=== PATIENT | male | born 1960 | race Caucasian/White ===

== ENCOUNTER → 2017-10-10 | Outpatient (CLI) | payer OTHER ==
--- NOTE | 2017-10-10 11:51 | DIAGNOSTIC IMAGING REPORT ---
CHEST 2 VIEWS ROUTINE CLINICAL HISTORY: COUGH COMPARISON STUDY: No previous studies for comparison. FINDINGS: The cardiac and mediastinal contours are normal. There is no evidence of focal pulmonary consolidation. There is no evidence of failure. No pleural effusions are visualized.[ IMPRESSION: No active disease in the chest. Electronically signed by: Gonsalo Donovan M.D. 10/10/2017 11:50 AM Dictated Date/Time: 10/10/2017 11:50 AM
== END | disposition home or self-care (01) ==
LOC: C.RAD1850 11:18
PROVIDERS: ATTEND Internal Medicine
DX: R50.9 Fever, unspecified (principal); R05 Cough

== ENCOUNTER 2020-03-08 22:31 | Observation (INO) ==
[2020-03-08] MEDS ORDERED: ALBUT/IPRATROP 3MG/0.5MG NEB 3 ML VIAL NEB STA (22:50)
[2020-03-08] MEDS ORDERED: ALBUT/IPRATROP 3MG/0.5MG NEB 3 ML VIAL NEB ONE (22:54)
[2020-03-08] MEDS ORDERED: methylPREDNISolone 125 MG/2 ML VIAL IV STA (22:54)
[2020-03-08] MEDS ORDERED: cefTRIAXone SODIUM 2,000 MG/70 ML BAG IV STA (22:57)
[2020-03-08 23:08] LABS: Basophils # (auto) 0.03 K/uL (0-0.2); Basophils % (auto) 0.3 %; Eosinophils # (auto) 0.88 K/uL (0-0.5); Eosinophils % (auto) 9.8 %; Hematocrit (blood only) 52.5 % (42-52); Hemoglobin 18.2 g/dL (14.0-18.0); Immature Granulocytes # (auto) 0.01 K/uL (0.00-0.02); Immature Granulocytes % (auto) 0.1 %; Lymphocytes # (auto) 2.96 K/uL (1.2-3.4); Mean Corpuscular Hemoglobin 30.3 pg (25-34); Mean Corpuscular Hgb Conc 34.7 g/dL (32-36); Mean Corpuscular Volume 87.5 fL (80-100); Mean Platelet Volume 10.6 fL (7.4-10.4); Monocytes # (auto) 0.51 K/uL (0.11-0.59); Monocytes % (auto) 5.7 %; Neutrophils # (auto) 4.59 K/uL (1.4-6.5); Neutrophils % (auto) 51.1 %; Platelet Count 194 K/uL (130-400); RDW Coefficient of Variation 13.7 % (11.5-14.5); RDW Standard Deviation 43.8 fL (36.4-46.3); White Blood Count 8.98 K/uL (4.8-10.8)
[2020-03-08 23:23] LABS: Partial Thromboplastin Ratio 0.9; Partial Thromboplastin Time 26.5 Seconds (21.0-31.0); Prothrombin Time 10.7 Seconds (9.0-12.0)
[2020-03-08 23:27] LABS: D Dimer 850 ug/L FEU (0-500)
[2020-03-08 23:48] LABS: Alanine Aminotransferase 35 U/L (12-78); Albumin Globulin Ratio 1.2 (0.9-2); Albumin Level 4.3 gm/dl (3.4-5.0); Alkaline Phosphatase 84 U/L (45-117); Aspartate Aminotransferase 19 U/L (15-37); BUN Creatinine Ratio 22.7 (10-20); Bilirubin,Total 0.8 mg/dl (0.2-1); Blood Urea Nitrogen 31 mg/dl (7-18); Calcium 9.7 mg/dl (8.5-10.1); Carbon Dioxide 27 mmol/L (21-32); Chloride 106 mmol/L (98-107); Creatinine Clr Calc Pharmacy 58.5 ml/min; Est GFR (African American) 65.5; Est GFR (Non-African American) 56.6; Globulin 3.6 gm/dl (2.5-4.0); Glucose 94 mg/dl (70-99); Magnesium 2.3 mg/dl (1.8-2.4); Potassium 3.7 mmol/L (3.5-5.1); Sodium 140 mmol/L (136-145); Total Protein 7.9 gm/dl (6.4-8.2); Troponin I < 0.015 ng/ml (0-0.045)
[2020-03-09 00:02] LABS: Base Excess VBG 1.5 mEq/L; Oxygen Saturation VBG 87.1 %; pH VBG 7.39 (7.36-7.41)
[2020-03-09 00:25] LABS: Influenza A virus by PCR Neg for Influ A (Neg); Influenza B virus by PCR Neg for Influ B (Neg)
[2020-03-09] MEDS ORDERED: OPTIRAY 320 125ml IV PRN (00:50)
[2020-03-09] MEDS ORDERED: OXYMETAZOLINE 0.05% 30 ML BTL ONE (01:04)
[2020-03-09 01:42] LABS: NT Pro B Type Natriuretic Pept 47 pg/ml (0-900)
--- NOTE | 2020-03-09 02:57 | History & Physical Report ---
Date of Service March 09, 2020 Assessment & Plan (1) Shortness of breath: 59yo C male with no known pulmonary disease presenting with SOB/cough/wheeze/tachypnea. Symptoms improved with Albuterol and steroids. Ddx to include reactive airway disease, CHF. Patient with hemochromotosis - no kno wn cardiac dysfunction -observation to medical floor -Albuterol PRN -Continue Tessalon -Check 2D echo -Supplemental O2 as needed Present on Admission?: Yes (2) Hemochromatosis: Chronic. Stable -2D echo as above F/E/N - Heplock. Monitor electrolytes. Regular diet Ppx - low risk for DVT Code - Full Dispo - Observation to medical floor Admission and Anticipated Discharge Date Admission Date: 03/09/20 Anticipated date of discharge: 03/09/20 History of Present Illness Chief Complaint: SOB Primary Care Provider: Nate Philip MD Rickie Lugo is a pleasant 59yo C male with history of hereditary hemochromotosis presenting with SOB/wheeze. He reports that his symptoms began approximately 10 days ago when he noticed a dry cough with wheezing and dyspnea. These symptoms lasted approximately one day then resolved. He felt SOB again a few days later. Cough is worst at night. He had testing for COVID-19 performed on 03/05/20 which was negative. Patient mowed the lawn today then took his dog for a walk. Around 21:00 he became severely short of breath, had a coughing fit that would not resolve with use of Tessalon. When he came to the ER he was in respiratory distress with RR of 26. He was administered a 12mL Albuterol Neb treatment and Solumedrol and briefly placed on BiPAP for increased work of breathing. His symptoms improved. He is presently on 2L via Oxymask, speaking in complete sentences with no evidence of respiratory distress. States that he feels much improved. No history of pulmonary disease, no Asthma/COPD. Has mild symptoms consistent with seasonal allergies to include rhinorrhea, sneezing. Had second-hand smoke exposure as a child but no personal history of smoking. Denies orthopnea/weight gain/edema. He has mild chest discomfort and soreness with cough and deep breathing. Otherwise, no complaints. Specifically no fe vers/chills/aches/abdominal pain/nausea/vomiting/diarrhea or constipation. ER Course: Albuterol, Ceftriaxone, Solumedrol, Afrin, BiPAP Allergies Allergy/AdvReac Type Severity Reaction Status Date / Time No Known Allergies Allergy Verified 03/08/20 23:26 Home Medications Home Medications Medication Instructions Recorded Confirmed Type benzonatate 200 mg capsule 200 mg PO TID PRN #30 cap 03/06/20 03/08/20 Rx Past Med/Surg History Social History Preferred Language: Tam[place] Communication Ability: Effective Visual Impairment: No Limitations Hearing Ability: Normal Hospital Manager Required: No marital status: Current Living Situation: Spouse current occupational status: employed current occupation: [employer] Safe at Home: Yes Smoking Status: Never smoker Hx Alcohol Use: No Hx Substance Use: No Childhood Exposure to Second-Hand Smoke: Yes caffeine: Yes Dental Care, Regularly: Yes Physical Activity Frequency: 3-4 Times per Week Seatbelt Use: always Sunscreen Use: Yes Review of Systems Review of Systems: All systems reviewed & are unremarkable except as noted in HPI & below Physical Exam Physical Exam: General: patient resting comfortably, NAD, non-toxic in appearance, AA&O x 4 Skin: warm, dry, intact, no rashes or lesions HEENT: NC/AT, PERRL, EOMI, anicteric sclera, conjunctiva without injection, external ear normal to inspection and nontender, nares patent, moist mucus membranes, dentition intact, no oropharyngeal lesions, neck supple, trachea midline, no LAD, no thyromegaly, no JVD Heart: +S1/S2, regular, no m/r/g Lungs: equal air entry bilaterally, no rales/rhonchi/wheezes Abd: +BS, soft, NT/ND, no masses/organomegaly/ascites Ext: warm, 2+ pulses in UE/LE bilaterally, no clubbing/cyanosis or edema Neuro: nonfocal, patient AA&O x 4, speech intact, no facial droop, moving all extremities on command with equal strength 5/5 Results & Data Results & Data ([facility]) Vital Signs (Past 12 Hours) Vital Signs Temp Pulse Pulse Resp BP BP Pulse Ox 03/09/20 02:22 64 16 143/75 H 97 03/09/20 00:48 77 15 98 03/09/20 00:47 77 12 127/69 98 06/05/20 00:00 89 17 133/85 98 03/08/20 23:27 98 03/08/20 23:22 103 H 22 145/106 H 99 03/08/20 23:18 98 H 20 98 03/08/20 23:16 98 H 20 98 03/08/20 23:12 108 H 25 H 149/128 H 98 03/08/20 23:00 108 H 20 97 03/08/20 22:47 101 H 25 H 93 03/08/20 22:33 36.8 C 97 H 26 H 94 Laboratory Results Lab Results 03/08/20 03/08/20 03/08/20 Range/Units 22:50 22:50 22:50 WBC 8.98 (4.8-10.8) K/uL RBC 6.00 (4.7-6.1) M/uL Hgb 18.2 H (14.0-18.0) g/dL Hct 52.5 H (42-52) % MCV 87.5 (80-100) fL MCH 30.3 (25-34) pg MCHC 34.7 (32-36) g/dL RDW Std Deviation 43.8 (36.4-46.3) fL RDW Coeff of Gregory 13.7 (11.5-14.5) % Plt Count 194 (130-400) K/uL MPV 10.6 H (7.4-10.4) fL Immature Gran % (Auto) 0.1 % Neut % (Auto) 51.1 % Lymph % (Auto) 33.0 % Thomas % (Auto) 5.7 % Eos % (Auto) 9.8 % Baso % (Auto) 0.3 % Immature Gran # (Auto) 0.01 (0.00-0.02) K/uL Neut # (Auto) 4.59 (1.4-6.5) K/uL Lymph # (Auto) 2.96 (1.2-3.4) K/uL Thomas # (Auto) 0.51 (0.11-0.59) K/uL Eos # (Auto) 0.88 H (0-0.5) K/uL Baso # (Auto) 0.03 (0-0.2) K/uL PT 10.7 (9.0-12.0) Seconds INR 1.0 (0.9-1.1) APTT 26.5 (21.0-31.0) Seconds PTT Ratio 0.9 D-Dimer 850 H* (0-500) ug/L FEU VBG pH (7.36-7.41) VBG pCO2 (38-50) mmHg VBG pO2 mmHg VBG HCO3 mmol/L VBG O2 Saturation % VBG Base Excess mEq/L Barometric Pressure mm/Hg Sodium 140 (136-145) mmol/L Potassium 3.7 (3.5-5.1) mmol/L Chloride 106 (98-107) mmol/L Carbon Dioxide 27 (21-32) mmol/L Anion Gap 9.0 (3-11) BUN 31 H (7-18) mg/dl Creatinine 1.36 (0.6-1.4) mg/dl Est Cr Clr Drug Dosing 58.5 ml/min Est GFR ( Amer) 65.5 Est GFR (Non-Af Amer) 56.6 BUN/Creatinine Ratio 22.7 H (10-20) Glucose 94 (70-99) mg/dl Lactate (0.4-2.0) mmol/L Calcium 9.7 (8.5-10.1) mg/dl Magnesium 2.3 (1.8-2.4) mg/dl Total Bilirubin 0.8 (0.2-1) mg/dl AST 19 (15-37) U/L ALT 35 (12-78) U/L Alkaline Phosphatase 84 (45-117) U/L Troponin I < 0.015 (0-0.045) ng/ml NT-Pro-B Natriuret Pep 47 (0-900) pg/ml Total Protein 7.9 (6.4-8.2) gm/dl Albumin 4.3 (3.4-5.0) gm/dl Globulin 3.6 (2.5-4.0) gm/dl Albumin/Globulin Ratio 1.2 (0.9-2) Procalcitonin (0-0.5) ng/ml Influenza Type A (PCR) (Neg) Influenza Type B (PCR) (Neg) 03/08/20 03/08/20 03/08/20 Range/Units 22:50 23:30 23:35 WBC (4.8-10.8) K/uL RBC (4.7-6.1) M/uL Hgb (14.0-18.0) g/dL Hct (42-52) % MCV (80-100) fL MCH (25-34) pg MCHC (32-36) g/dL RDW Std Deviation (36.4-46.3) fL RDW Coeff of Gregory (11.5-14.5) % Plt Count (130-400) K/uL MPV (7.4-10.4) fL Immature Gran % (Auto) % Neut % (Auto) % Lymph % (Auto) % Thomas % (Auto) % Eos % (Auto) % Baso % (Auto) % Immature Gran # (Auto) (0.00-0.02) K/uL Neut # (Auto) (1.4-6.5) K/uL Lymph # (Auto) (1.2-3.4) K/uL Thomas # (Auto) (0.11-0.59) K/uL Eos # (Auto) (0-0.5) K/uL Baso # (Auto) (0-0.2) K/uL PT (9.0-12.0) Seconds INR (0.9-1.1) APTT (21.0-31.0) Seconds PTT Ratio D-Dimer (0-500) ug/L FEU VBG pH 7.39 (7.36-7.41) VBG pCO2 46 (38-50) mmHg VBG pO2 53 mmHg VBG HCO3 27 mmol/L VBG O2 Saturation 87.1 % VBG Base Excess 1.5 mEq/L Barometric Pressure 729.6 mm/Hg Sodium (136-145) mmol/L Potassium (3.5-5.1) mmol/L Chloride (98-107) mmol/L Carbon Dioxide (21-32) mmol/L Anion Gap (3-11) BUN (7-18) mg/dl Creatinine (0.6-1.4) mg/dl Est Cr Clr Drug Dosing ml/min Est GFR ( Amer) Est GFR (Non-Af Amer) BUN/Creatinine Ratio (10-20) Glucose (70-99) mg/dl Lactate (0.4-2.0) mmol/L Calcium (8.5-10.1) mg/dl Magnesium (1.8-2.4) mg/dl Total Bilirubin (0.2-1) mg/dl AST (15-37) U/L ALT (12-78) U/L Alkaline Phosphatase (45-117) U/L Troponin I (0-0.045) ng/ml NT-Pro-B Natriuret Pep (0-900) pg/ml Total Protein (6.4-8.2) gm/dl Albumin (3.4-5.0) gm/dl Globulin (2.5-4.0) gm/dl Albumin/Globulin Ratio (0.9-2) Procalcitonin < 0.05 (0-0.5) ng/ml Influenza Type A (PCR) Neg for Influ A (Neg) Influenza Type B (PCR) Neg for Influ B (Neg) 03/08/20 Range/Units 23:35 WBC (4.8-10.8) K/uL RBC (4.7-6.1) M/uL Hgb (14.0-18.0) g/dL Hct (42-52) % MCV (80-100) fL MCH (25-34) pg MCHC (32-36) g/dL RDW Std Deviation (36.4-46.3) fL RDW Coeff of Gregory (11.5-14.5) % Plt Count (130-400) K/uL MPV (7.4-10.4) fL Immature Gran % (Auto) % Neut % (Auto) % Lymph % (Auto) % Thomas % (Auto) % Eos % (Auto) % Baso % (Auto) % Immature Gran # (Auto) (0.00-0.02) K/uL Neut # (Auto) (1.4-6.5) K/uL Lymph # (Auto) (1.2-3.4) K/uL Thomas # (Auto) (0.11-0.59) K/uL Eos # (Auto) (0-0.5) K/uL Baso # (Auto) (0-0.2) K/uL PT (9.0-12.0) Seconds INR (0.9-1.1) APTT (21.0-31.0) Seconds PTT Ratio D-Dimer (0-500) ug/L FEU VBG pH (7.36-7.41) VBG pCO2 (38-50) mmHg VBG pO2 mmHg VBG HCO3 mmol/L VBG O2 Saturation % VBG Base Excess mEq/L Barometric Pressure mm/Hg Sodium (136-145) mmol/L Potassium (3.5-5.1) mmol/L Chloride (98-107) mmol/L Carbon Dioxide (21-32) mmol/L Anion Gap (3-11) BUN (7-18) mg/dl Creatinine (0.6-1.4) mg/dl Est Cr Clr Drug Dosing ml/min Est GFR ( Amer) Est GFR (Non-Af Amer) BUN/Creatinine Ratio (10-20) Glucose (70-99) mg/dl Lactate 1.2 (0.4-2.0) mmol/L Calcium (8.5-10.1) mg/dl Magnesium (1.8-2.4) mg/dl Total Bilirubin (0.2-1) mg/dl AST (15-37) U/L ALT (12-78) U/L Alkaline Phosphatase (45-117) U/L Troponin I (0-0.045) ng/ml NT-Pro-B Natriuret Pep (0-900) pg/ml Total Protein (6.4-8.2) gm/dl Albumin (3.4-5.0) gm/dl Globulin (2.5-4.0) gm/dl Albumin/Globulin Ratio (0.9-2) Procalcitonin (0-0.5) ng/ml Influenza Type A (PCR) (Neg) Influenza Type B (PCR) (Neg) Diagnostic Findings CTA Chest - Per STAT-rad: No evidence for PE. No focal consolidation. No pleural effusion or pneumothorax. Mild peribronchial interstitial thickening noted which may be related to subtle interstitial vascular prominence or reactive airwaysa process. In addition there is some reflux of contrast into the intrahepatic IVC and hepatic veins. THis is a nonspecific finding and may be related to rate of contrast injection. However, this is also a finding in right heart dysfunction. Code Status & VTE Plan Code Status Full PG Care Time/CCT Total # of Minutes Spent Total Time Spent with Patient: Total time spent is greater than 50% in coordination of care (as documented) at patient's floor/unit and/or counseling patient: Coding Level of Care Code 81491 OBS Care - Level 2 Diagnoses Shortness of breath R06.02 Hemochromatosis E83.110 Hemochromatosis type: hereditary (1) Hemochromatosis Hemochromatosis type: hereditary Qualified Code(s): E83.110 - Hereditary hemochromatosis
[2020-03-09] MEDS ORDERED: BENZONATATE 100 MG CAPSULE PO PRN (03:38)
[2020-03-09] MEDS ORDERED: ALBUTEROL 0.5% NEB SOLN 2.5 MG/0.5 ML VIAL NEB PRN (03:38)
--- NOTE | 2020-03-09 07:08 | XRay Report ---
XR chest 1V portable CLINICAL HISTORY: sob COMPARISON STUDY: No previous studies for comparison. FINDINGS: The bones soft tissues and hemidiaphragms are normal. The cardiomediastinal silhouette is n ormal. The lungs are clear. The pulmonary vasculature is normal. IMPRESSION: Negative chest. ACT 112: Negative or not required by law. The above report was generated using voice recognition software. It may contain grammatical, syntax or spelling errors. Electronically signed by: Onofre Moctezuma M.D. 03/09/2020 7:06 AM
--- NOTE | 2020-03-09 07:16 | CT Scan Report ---
CT angio chest PE protocol CT DOSE: 341.11 mGy.cm HISTORY: SOB, Elevated dimer TECHNIQUE: Multiaxial CT images of the chest were performed following the intravenous administration of contrast to evaluate the pulmonary arteries. Maximal intensity projection images were also obtaine d. A dose lowering technique was utilized adhering to the principles of ALARA. COMPARISON STUDY: None. FINDINGS: There is a normal caliber thoracic aorta with no evidence for dissection. There is no evide nce for pulmonary embolus. No pleural effusions. No pneumothorax. The liver and spleen are unremarkab le. No mediastinal or hilar lymphadenopathy. The central airways are patent. The lungs are clear. IMPRESSION: No evidence for pulmonary embolus. Several nonspecific mediastinal and hilar nodes. ACT 112: Negative or not required by law. The above report was generated using voice recognition software. It may contain grammatical, syntax or spelling errors. Electronically signed by: Onofre Moctezuma M.D. 03/09/2020 7:14 AM
--- NOTE | 2020-03-09 08:56 | XCELERA ---
[id number] \\[id number]
[2020-03-09] MEDS ORDERED: predniSONE 20 MG TAB PO SCH (09:00)
--- NOTE | 2020-03-09 09:02 | Hospitalist Progress Note ---
Date of Service March 09, 2020 Assessment & Plan (1) Shortness of breath: 59yo C male with no known pulmonary disease presenting with SOB/cough/wheeze/tachypnea. Symptoms improved with Albuterol and steroids. Ddx to include reactive airway disease, CHF. Patient with hemochromotosis - no kno wn cardiac dysfunction -observation to medical floor -Albuterol PRN -Continue Tessalon -Check 2D echo -Supplemental O2 as needed (2) Hemochromatosis: Chronic. Stable -2D echo as above F/E/N - Heplock. Monitor electrolytes. Regular diet Ppx - low risk for DVT Code - Full Dispo - Observation to medical floor Admission and Anticipated Discharge Date Admission Date: March 09, 2020 Results & Data Results & Data ([facility]) Vital Signs (Past 12 Hours) Vital Signs Temp Pulse Pulse Resp BP BP BP 03/09/20 08:22 97.9 F 57 L 18 138/70 03/09/20 04:16 97.3 F L 93 H 18 137/78 03/09/20 03:23 60 18 123/68 03/09/20 03:07 70 16 123/68 03/09/20 02:22 64 16 143/75 H 03/09/20 00:48 77 15 03/09/20 00:47 77 12 127/69 03/09/20 00:00 89 17 133/85 03/08/20 23:27 03/08/20 23:22 103 H 22 145/106 H 03/08/20 23:18 98 H 20 03/08/20 23:16 98 H 20 03/08/20 23:12 108 H 25 H 149/128 H 03/08/20 23:00 108 H 20 03/08/20 22:47 101 H 25 H 03/08/20 22:33 98.2 F 97 H 26 H Pulse Ox 03/09/20 08:22 95 03/09/20 04:16 94 03/09/20 03:23 96 03/09/20 03:07 96 03/09/20 02:22 97 03/09/20 00:48 98 03/09/20 00:47 98 03/09/20 00:00 98 03/08/20 23:27 98 03/08/20 23:22 99 03/08/20 23:18 98 06/04/20 23:16 98 03/08/20 23:12 98 03/08/20 23:00 97 03/08/20 22:47 93 03/08/20 22:33 94 PG Care Time/CCT Total # of Minutes Spent Total Time Spent with Patient: Total time spent is greater than 50% in coordination of care (as documented) at patient's floor/unit and/or counseling patient: Coding Diagnoses Shortness of breath R06.02 Hemochromatosis E83.110 Hemochromatosis type: hereditary (1) Hemochromatosis Hemochromatosis type: hereditary Qualified Code(s): E83.110 - Hereditary hemochromatosis
--- NOTE | 2020-03-09 15:34 | Discharge Summary ---
Date of Service March 09, 2020 Admission HPI Per Admitting Provider Rickie Lugo is a pleasant 59yo C male with history of hereditary hemochromotosis presenting with SOB/wheeze. He reports that his symptoms began approximately 10 days ago when he noticed a dry cough with wheezing and dyspnea. These symptoms lasted approximately one day then resolved. He felt SOB again a few days later. Cough is worst at night. He had testing for COVID-19 performed on 03/05/20 which was negative. Patient mowed the lawn today then took his dog for a walk. Around 21:00 he became severely short of breath, had a coughing fit that would not resolve with use of Tessalon. When he came to the ER he was in respiratory distress with RR of 26. He was administered a 12mL Albuterol Neb treatment and Solumedrol and briefly placed on BiPAP for increased work of breathing. His symptoms improved. He is presently on 2L via Oxymask, speaking in complete sentences with no evidence of respiratory distress. States that he feels much improved. No history of pulmonary disease, no Asthma/COPD. Has mild symptoms consistent with seasonal allergies to include rhinorrhea, sneezing. Had second-hand smoke exposure as a child but no personal history of smoking. Denies orthopnea/weight gain/edema. He has mild chest discomfort and soreness with cough and deep breathing. Otherwise, no complaints. Specifically no fevers/chills/aches/abdominal pain/nausea/vomiting/diarrhea or constipation. ER Course: Albuterol, Ceftriaxone, Solumedrol, Afrin, BiPAP Principal Diagnosis bronchitis and reactive airway disease Discharge Exam The patient appeared well Vital signs as documented. Lungs are clear with exception of some scant end expiratory wheezes in the right middle lobe Cardiac exam, Rhythm is regular.. No murmurs, rubs or gallops. Abdominal exam reveals normal bowel sounds, soft non tender, no masses Extremities are nonedematous and both pedal pulses are normal. Neurologic exam is alert and oriented, no focal loss of strength or sensation Skin is without bruises or rashes Psychologically is without concerns for anxiety or depression Discharge Data Allergies Allergy/AdvReac Type Severity Reaction Status Date / Time No Known Allergies Allergy Verified 03/08/20 23:26 Ordered Studies 03/08/20 23:28 CT angio chest PE protocol Urgent Hospital Course (1) Shortness of breath: 59yo C male with no known pulmonary disease presenting with SOB/cough/wheeze/tachypnea. Symptoms improved with Albuterol and steroids. Patient with hemochromotosis - no known cardiac dysfunction Elevated d-dimer but CT angiogram negative for pulmonary embolism or active pneumonia, there are several nonspecific nodules but no recommendation from radiology for repeat evaluation - Patient did remarkably well after his initial presentation. He was off oxygen he was walking in the hallways without difficulty or hypoxia his cough is actually improved. We will continue oral steroids for a 5-day tapering dose. Azithromycin orally for atypical bronchitis. Patient on Hycodan for cough and be given albuterol mdi as needed (2) Hemochromatosis: Chronic. Stable -2D echo without significant abnormalities Code - Full Dispo - Observation to medical floor Total Time Total Time Spent Total Time Spent (In Minutes): It required greater than 30 minutes to prepare this patient for discharge Discharge Plan Discharge Items Patient Disposition: Home - Self-Care Reason For Visit: SOB Discharge Diagnosis: bronchitis Activity: Resume your previous activity Non-emergency contact: Primary Care Provider Call non-emergency contact if: you have any medication questions and your symptoms worsen Follow-up/Referrals: Nate Philip MD [Primary Care Provider] - (please call your PCP to set up a follow up appt. ) Diet: Regular Addtl Attending Provider Instructions: rest and recover please continue to donate blood, thanks for doing that complete antibiotics and steroids, use cough medicine for comfort Pending Studies at Discharge: No Stand-Alone Forms: [employer], Smoking Cessation Medications and DC Order Prescriptions: New azithromycin 250 mg tablet See Rx Instructions .ROUTE .COMPLEX Qty: 6 RF: 0 prednisone 10 mg tablet 10 mg PO UD Qty: 10 RF: 0 albuterol sulfate 90 mcg/actuation HFA aerosol inhaler 1 puffs INH Q6H PRN (Reason: shortness of breath or wheezing) Qty: 6.7 RF: 0 hydrocodone-homatropine [Hydrocodone Compound] 5-1.5 mg/5 mL syrup 5 ml PO Q6H PRN (Reason: cough) Qty: 125 RF: 0 Continued benzonatate 200 mg capsule 200 mg PO TID PRN (Reason: cough) Qty: 30 RF: 1 Discharge Orders: Discharge Order (Routine); Ordered 03/09/20 Ordered By: Hector Solano Admission Data Admit Date/Time: 03/09/20 02:43 Attending Provider: Hector Solano Admit Provider: Cherry Aguero Primary Care Provider: Nate Philip Other Interventions: Discharge Summary Assessment (RN) Last Done: 03/09/20 12:50 Coding Level of Care Code D/C Day Management >30 mins Diagnoses Shortness of breath R06.02 Hemochromatosis E83.110 Hemochromatosis type: hereditary
--- NOTE | 2020-03-10 03:27 | Emergency Department Note ---
History of Present Illness General Chief complaint: Illness Stated complaint: COUGH SINCE 02/24, COVID TEST PENDING Time Seen by Provider: 03/08/20 22:47 History of Present Illness This is a 59-year-old male presenting to the emergency department for evaluation of severe shortness of breath. The patient has had mild coughing and wheezing for the past 10 days. He had outpatient COVID-19 testing performed earlier this week which was negative. The patient mowed his lawn today and took his dog for a walk, which is pretty common for him. About 2 hours prior to arrival he had a strong coughing fit and has essentially been unable to breathe well ever since. On patient's arrival to the department he is in severe acute respiratory distress. I was alerted to his status by nursing, and the patient was seen i mmediately upon arrival. He is unable to answer questions except for short 1 and 2 word answers. He does not have fever or chills. He rates his current discomfort a 10/10. Home Medications Home Medications Medication Instructions Recorded Confirmed Type benzonatate 200 mg capsule 200 mg PO TID PRN #30 cap 03/06/20 03/08/20 Rx albuterol sulfate 1 puffs INH Q6H PRN #6.7 gm 03/09/20 Rx azithromycin See Rx Instructions .ROUTE 03/09/20 Rx .COMPLEX #6 tab hydrocodone-homatropine 5 ml PO Q6H PRN #125 ml 03/09/20 Rx [Hydrocodone Compound] prednisone 10 mg PO UD #10 tab 03/09/20 Rx Allergies Allergy/AdvReac Type Severity Reaction Status Date / Time No Known Allergies Allergy Verified 03/08/20 23:26 Past Med/Surg History Medical History Family history of prostate cancer (Chronic) Hemochromatosis (Chronic) Hepatic steatosis (Chronic) Impaired glucose metabolism (Chronic) Surgical History History of colonoscopy History of tooth extraction Social History Preferred Language: Nauruan Communication Ability: Effective Visual Impairment: No Limitations Hearing Ability: Normal Java [employer] Required: No Beliefs That Will Affect Care: None marital status: Current Living Situation: Spouse current occupational status: employed current occupation: [employer] Safe at Home: Yes Smoking Status: Never smoker Hx Alcohol Use: No Hx Substance Use: No Childhood Exposure to Second-Hand Smoke: Yes caffeine: Yes Dental Care, Regularly: Yes Physical Activity Frequency: 3-4 Times per Week Seatbelt Use: always Sunscreen Use: Yes Review of Systems A total of 10 systems reviewed and were otherwise negative Physical Exam Vital Signs Vital Signs Temp Pulse Resp Pulse Ox 36.8 C 97 H 26 H 94 03/08/20 22:33 03/08/20 22:33 03/08/20 22:33 03/08/20 22:33 VITALS: Vitals are noted on the nurse's note and reviewed by myself. Vital signs with tachycardia and tachypnea GENERAL: Exceptionally unwell appearing white male who is in significant respiratory distress. He is tripoding on the bed to breathe. He is unable to speak more than 1 and 2 word answers. He is with very significant work of breathing. Dry cough is noted. HEAD: Normocephalic atraumatic. NECK: Supple without nuchal rigidity. No lymphadenopathy. No thyromegaly. Cervical spine is nontender. HEART: Tachycardic rate with regular rhythm LUNGS: Significant tachypnea. Diffuse wheezing and rhonchi throughout. Lung sounds are wet. Cough is noted. ABDOMEN: Positive normal bowel sounds x 4. Soft, nontender, without masses or organomegaly. No guarding or rebound tenderness. MUSCULOSKELETAL: No muscle atrophy, erythema, or edema noted. Full range of motion in all extremities. NEURO: Patient was alert and oriented to person place and time. CN II through XII grossly intact. Course Administered Medications Discontinued Medications Albuterol (Duoneb) 3 ml NEB NOW STA Stop: 03/08/20 22:51 Last Admin: 03/09/20 01:00 Dose: Not Given Documented by: [id number] Albuterol (Duoneb) 12 ml NEB ONE ONE Stop: 03/08/20 22:55 Last Admin: 03/08/20 23:16 Dose: 12 ml Documented by: [id number] Albuterol (Ventolin 0.5% 2.5mg/0.5ml) 2.5 mg NEB Q2H PRN PRN Reason: SOB/Wheeze Stop: 04/08/20 03:37 Last Admin: 03/09/20 11:05 Dose: 2.5 mg Documented by: [id number] Ceftriaxone Sodium (Rocephin) 2,000 mg in 70 mls @ 140 mls/hr IV NOW STA Stop: 03/08/20 23:26 Last Infusion: 03/09/20 00:06 Dose: 0 mls/hr Documented by: [id number] Admin: 03/08/20 23:36 Dose: 140 mls/hr Documented by: [id number] Ioversol (Optiray 320 125ml) 125 ml IV ONCE PRN PRN Reason: Interaction Checking Stop: 03/13/20 00:49 Last Admin: 03/09/20 00:51 Dose: 91 ml Documented by: [id number] Methylprednisolone (Solumedrol) 125 mg IV NOW STA Stop: 03/08/20 22:55 Last Admin: 03/08/20 23:11 Dose: 125 mg Documented by: [id number] Oxymetazoline HCl (Afrin 0.05%) 2 sprays NA NOW ONE Stop: 03/09/20 01:05 Last Admin: 03/09/20 01:24 Dose: 2 sprays Documented by: [id number] Prednisone (Prednisone) 40 mg PO DAILY MANJINDER; Taper Stop: 03/13/20 08:59 Last Admin: 03/09/20 08:50 Dose: 40 mg Documented by: [id number] Critical Care Time I have personally spent greater than 55 minutes of critical care time in the direct management of this patient. This includes bedside care, interpretation of diagnostic studies, and testing, discussion with consultants, patient, and family members, and other required patient management activities. This 55 minutes is in excess of all separately billable procedures. Medical Decision Making Differential Diagnosis Differential diagnosis includes, but is not limited to: Acute respiratory failure, myocardial infarction, dysrhythmia, pericarditis, pneumothorax, aortic aneurysm/dissection, DVT/PE, anxiety, GERD, PUD, electrolyte imbalance, thyroid disorder, pneumonia, bronchitis, pancreatitis, and others Laboratory Data Result diagrams: 03/08/20 22:50 03/08/20 22:50 Lab Results 03/08/20 03/08/20 03/08/20 Range/Units 22:50 22:50 22:50 WBC 8.98 (4.8-10.8) K/uL RBC 6.00 (4.7-6.1) M/uL Hgb 18.2 H (14.0-18.0) g/dL Hct 52.5 H (42-52) % MCV 87.5 (80-100) fL MCH 30.3 (25-34) pg MCHC 34.7 (32-36) g/dL RDW Std Deviation 43.8 (36.4-46.3) fL RDW Coeff of Gregory 13.7 (11.5-14.5) % Plt Count 194 (130-400) K/uL MPV 10.6 H (7.4-10.4) fL Immature Gran % (Auto) 0.1 % Neut % (Auto) 51.1 % Lymph % (Auto) 33.0 % [place] % (Auto) 5.7 % Eos % (Auto) 9.8 % Baso % (Auto) 0.3 % Immature Gran # (Auto) 0.01 (0.00-0.02) K/uL Neut # (Auto) 4.59 (1.4-6.5) K/uL Lymph # (Auto) 2.96 (1.2-3.4) K/uL [place] # (Auto) 0.51 (0.11-0.59) K/uL Eos # (Auto) 0.88 H (0-0.5) K/uL Baso # (Auto) 0.03 (0-0.2) K/uL PT 10.7 (9.0-12.0) Seconds INR 1.0 (0.9-1.1) APTT 26.5 (21.0-31.0) Seconds PTT Ratio 0.9 D-Dimer 850 H* (0-500) ug/L FEU VBG pH (7.36-7.41) VBG pCO2 (38-50) mmHg VBG pO2 mmHg VBG HCO3 mmol/L VBG O2 Saturation % VBG Base Excess mEq/L Barometric Pressure mm/Hg Sodium 140 (136-145) mmol/L Potassium 3.7 (3.5-5.1) mmol/L Chloride 106 (98-107) mmol/L Carbon Dioxide 27 (21-32) mmol/L Anion Gap 9.0 (3-11) BUN 31 H (7-18) mg/dl Creatinine 1.36 (0.6-1.4) mg/dl Est Cr Clr Drug Dosing 58.5 ml/min Est GFR ( Amer) 65.5 Est GFR (Non-Af Amer) 56.6 BUN/Creatinine Ratio 22.7 H (10-20) Glucose 94 (70-99) mg/dl Lactate (0.4-2.0) mmol/L Calcium 9.7 (8.5-10.1) mg/dl Magnesium 2.3 (1.8-2.4) mg/dl Total Bilirubin 0.8 (0.2-1) mg/dl AST 19 (15-37) U/L ALT 35 (12-78) U/L Alkaline Phosphatase 84 (45-117) U/L Troponin I < 0.015 (0-0.045) ng/ml NT-Pro-B Natriuret Pep 47 (0-900) pg/ml Total Protein 7.9 (6.4-8.2) gm/dl Albumin 4.3 (3.4-5.0) gm/dl Globulin 3.6 (2.5-4.0) gm/dl Albumin/Globulin Ratio 1.2 (0.9-2) Procalcitonin (0-0.5) ng/ml Hepatitis C Ab Screen (Neg) Influenza Type A (PCR) (Neg) Influenza Type B (PCR) (Neg) 03/08/20 03/08/20 03/08/20 Range/Units 22:50 22:50 23:30 WBC (4.8-10.8) K/uL RBC (4.7-6.1) M/uL Hgb (14.0-18.0) g/dL Hct (42-52) % MCV (80-100) fL MCH (25-34) pg MCHC (32-36) g/dL RDW Std Deviation (36.4-46.3) fL RDW Coeff of Gregory (11.5-14.5) % Plt Count (130-400) K/uL MPV (7.4-10.4) fL Immature Gran % (Auto) % Neut % (Auto) % Lymph % (Auto) % [place] % (Auto) % Eos % (Auto) % Baso % (Auto) % Immature Gran # (Auto) (0.00-0.02) K/uL Neut # (Auto) (1.4-6.5) K/uL Lymph # (Auto) (1.2-3.4) K/uL [place] # (Auto) (0.11-0.59) K/uL Eos # (Auto) (0-0.5) K/uL Baso # (Auto) (0-0.2) K/uL PT (9.0-12.0) Seconds INR (0.9-1.1) APTT (21.0-31.0) Seconds PTT Ratio D-Dimer (0-500) ug/L FEU VBG pH (7.36-7.41) VBG pCO2 (38-50) mmHg VBG pO2 mmHg VBG HCO3 mmol/L VBG O2 Saturation % VBG Base Excess mEq/L Barometric Pressure mm/Hg Sodium (136-145) mmol/L Potassium (3.5-5.1) mmol/L Chloride (98-107) mmol/L Carbon Dioxide (21-32) mmol/L Anion Gap (3-11) BUN (7-18) mg/dl Creatinine (0.6-1.4) mg/dl Est Cr Clr Drug Dosing ml/min Est GFR ( Amer) Est GFR (Non-Af Amer) BUN/Creatinine Ratio (10-20) Glucose (70-99) mg/dl Lactate (0.4-2.0) mmol/L Calcium (8.5-10.1) mg/dl Magnesium (1.8-2.4) mg/dl Total Bilirubin (0.2-1) mg/dl AST (15-37) U/L ALT (12-78) U/L Alkaline Phosphatase (45-117) U/L Troponin I (0-0.045) ng/ml NT-Pro-B Natriuret Pep (0-900) pg/ml Total Protein (6.4-8.2) gm/dl Albumin (3.4-5.0) gm/dl Globulin (2.5-4.0) gm/dl Albumin/Globulin Ratio (0.9-2) Procalcitonin < 0.05 (0-0.5) ng/ml Hepatitis C Ab Screen Neg (Neg) Influenza Type A (PCR) Neg for Influ A (Neg) Influenza Type B (PCR) Neg for Influ B (Neg) 03/08/20 03/08/20 Range/Units 23:35 23:35 WBC (4.8-10.8) K/uL RBC (4.7-6.1) M/uL Hgb (14.0-18.0) g/dL Hct (42-52) % MCV (80-100) fL MCH (25-34) pg MCHC (32-36) g/dL RDW Std Deviation (36.4-46.3) fL RDW Coeff of Gregory (11.5-14.5) % Plt Count (130-400) K/uL MPV (7.4-10.4) fL Immature Gran % (Auto) % Neut % (Auto) % Lymph % (Auto) % [place] % (Auto) % Eos % (Auto) % Baso % (Auto) % Immature Gran # (Auto) (0.00-0.02) K/uL Neut # (Auto) (1.4-6.5) K/uL Lymph # (Auto) (1.2-3.4) K/uL [place] # (Auto) (0.11-0.59) K/uL Eos # (Auto) (0-0.5) K/uL Baso # (Auto) (0-0.2) K/uL PT (9.0-12.0) Seconds INR (0.9-1.1) APTT (21.0-31.0) Seconds PTT Ratio D-Dimer (0-500) ug/L FEU VBG pH 7.39 (7.36-7.41) VBG pCO2 46 (38-50) mmHg VBG pO2 53 mmHg VBG HCO3 27 mmol/L VBG O2 Saturation 87.1 % VBG Base Excess 1.5 mEq/L Barometric Pressure 729.6 mm/Hg Sodium (136-145) mmol/L Potassium (3.5-5.1) mmol/L Chloride (98-107) mmol/L Carbon Dioxide (21-32) mmol/L Anion Gap (3-11) BUN (7-18) mg/dl Creatinine (0.6-1.4) mg/dl Est Cr Clr Drug Dosing ml/min Est GFR ( Amer) Est GFR (Non-Af Amer) BUN/Creatinine Ratio (10-20) Glucose (70-99) mg/dl Lactate 1.2 (0.4-2.0) mmol/L Calcium (8.5-10.1) mg/dl Magnesium (1.8-2.4) mg/dl Total Bilirubin (0.2-1) mg/dl AST (15-37) U/L ALT (12-78) U/L Alkaline Phosphatase (45-117) U/L Troponin I (0-0.045) ng/ml NT-Pro-B Natriuret Pep (0-900) pg/ml Total Protein (6.4-8.2) gm/dl Albumin (3.4-5.0) gm/dl Globulin (2.5-4.0) gm/dl Albumin/Globulin Ratio (0.9-2) Procalcitonin (0-0.5) ng/ml Hepatitis C Ab Screen (Neg) Influenza Type A (PCR) (Neg) Influenza Type B (PCR) (Neg) Imaging Data Radiologist's Impression: XR chest 1V portable CLINICAL HISTORY: sob COMPARISON STUDY: No previous studies for comparison. FINDINGS: The bones soft tissues and hemidiaphragms are normal. The cardiomediastinal silhouette is normal. The lungs are clear. The pulmonary vasculature is normal. IMPRESSION: Negative chest. CT angio chest PE protocol CT DOSE: 341.11 mGy.cm HISTORY: SOB, Elevated dimer TECHNIQUE: Multiaxial CT images of the chest were performed following the intravenous administration of contrast to evaluate the pulmonary arteries. Maximal intensity projection images were also obtained. A dose lowering technique was utilized adhering to the principles of ALARA. COMPARISON STUDY: None. FINDINGS: There is a normal caliber thoracic aorta with no evidence for dissection. There is no evidence for pulmonary embolus. No pleural effusions. No pneumothorax. The liver and spleen are unremarkable. No mediastinal or hilar lymphadenopathy. The central airways are patent. The lungs are clear. IMPRESSION: No evidence for pulmonary embolus. Several nonspecific mediastinal and hilar nodes. ECG Data Attestation: I personally reviewed and interpreted this ECG as follows: Indication: + SOB/dyspnea Additional Comments: Normal sinus rhythm @[address] abnormality No ectopy. Normal axis. No previous available Abnormal ECG MDM Narrative Physical exam and history were performed. Nursing notes, EMR, and Medication List were personally reviewed. Patient appears to have significant dyspnea. The patient was brought to my attention immediately by nursing staff from triage, and upon my arrival to the room the patient appears in acute respiratory failure. He is with significant work of breathing and appears toxic. 2 IVs were immediately established. Blood work was obtained. The case was discussed with my attending physician, Dr. Bain, who also immediately arrived in the room to evaluate the patient. The patient was immediately started on BiPAP and given an hour-long DuoNeb as well as 125 mg IV Solu-Medrol. Chest x-ray was performed. The patient's blood work is as above and was reviewed. He does not have a significantly elevated white blood cell count. He is with a hemoglobin of 18.2 but does have a history of hemochromatosis. INR is 1.0. D-dimer is elevated at 850. VBG is essentially normal. No significant electrolyte imbalance was identified. Lactic was 1.2. Troponin x1 is negative. Transaminases are not diagnostic. Procalcitonin is negative. Influenza swab was negative. Chest x- ray was reviewed by myself and radiology showing no acute process. Because of his elevated dimer CT scan was performed, and is without evidence of pulmonary emboli. The patient was reevaluated multiple times throughout the course of his stay. I did speak with his by telephone multiple times throughout his ER evaluation. The patient had remarkable improvement of symptoms after steroids and breathing treatment here in the ER. Upon returning back to his room from CT we did transition him to an Oxymask and 2 L oxygen. He had remarkable improvement of his symptoms after this, and felt much better. He was able to complete the history with me, and repeat lung exam showed significant improvement of his w heezing. He no longer sounds wet on auscultation. Overall the patient does not seem well for discharge home. He did require BiPAP as well as significant intervention to improve his symptoms. I discussed the case with the on-call hospitalist who agreed to evaluate him here in the ER. Please see their dictation for further patient course, plan, and disposition. The chart was completed utilizing [employer] Speech Voice Recognition Software. Grammatical errors, random word insertions, pronoun errors, and incomplete sentences are an occasional consequence of this system due to software limitati ons, ambient noise, and hardware issues. Any formal questions or concerns about the content, text, or information contained within the body of this dictation should be directly addressed to the provider for clarification. . Impression & Plan Acute respiratory failure, Shortness of breath Discharge Plan Visit Data *Final* Discharge Date/Time: 03/09/20 03:23 Chief Complaint: Illness Stated Complaint: COUGH SINCE 02/24, COVID TEST PENDING ED Provider: Alfred Bain ED Midlevel Provider: Erich Lundy Discharge Problem: Acute respiratory failure, Shortness of breath Patient Disposition: Admitted As Inpatient Discharge Instructions Interventions: ED Discharge Assessment Last Done: 03/09/20 03:23 Discharge Problem: Acute respiratory failure Qualifiers: Respiratory failure complication: unspecified whether with hypoxia or hypercapnia Qualified Code(s): J96.00 - Acute respiratory failure, unspecified whether with hypoxia or hypercapnia
--- NOTE | 2020-03-10 06:53 | Electrocardiogram Report ---
Test Reason : Blood Pressure : / mmHG Vent. Rate : 094 BPM Atrial Rate : 094 BPM P-R Int : 166 ms QRS Dur : 096 ms QT Int : 348 ms P-R-T Axes : 037 -23 047 degrees QTc Int : 435 ms Poor data quality, interpretation may be adversely affected Normal sinus rhythm Nonspecific ST abnormality Abnormal ECG Confirmed by Dennis Andujar ([id number]) on 03/10/2020 6:52:45 AM Referred By: REFERRED SELF Confirmed By:Dennis Andujar
== END 2020-03-09 16:10 | disposition home or self-care (01) ==
LOC: ED 22:31 → 3N 22:31 → SUATTDRO 03-09 02:43 → 3N 03-09 03:23

== ENCOUNTER 2020-03-27 03:17 | Observation (INO) ==
--- NOTE | 2020-03-27 04:13 | Emergency Department Note ---
History of Present Illness General Chief complaint: Abdominal Pain Stated complaint: UPR ABDOMINAL PAIN WRAP AROUND TO BACK Time Seen by Provider: 03/27/20 03:44 Source: patient Mode of arrival: ambulatory Limitations: no limitations History of Present Illness Provider complaint: Upper abdominal pain Onset (ago): hour(s) Location: abdomen Radiation: back Severity: mild Maximum Pain Intensity: 2 Current Pain Intensity: 2 Quality: + constant Relieved By: + none Exacerbated By: + none Associated symptoms: + denies other symptoms Treatments prior to arrival: other (Rolaids) This is a 59-year-old male who presents from home due to complaints of abrupt on set of upper abdominal pain. Patient states he felt well in his usual state of health when he went to bed around 11 and then awoke at 1:30 AM with upper abdominal pain bilaterally that he felt was "wrapping around like a belt" into his back bilaterally. Patient states no prior similar episodes. Patient states no change in diet, medications, or activity. States his has not been ill and they have been eating the same foods. Patient denies any recent change in his bowel movements including no black or bloody stools. Patient denies fevers or chills. Denies nausea or vomiting. Denies chest pain or trouble breathing. Patient states he and his are most concerned about gallbladder problems. Patient does relay a recent hospitalization several weeks ago due to difficulty breathing. Patient states he did well and was only kept 1 night and released the next day. Patient did have subsequent course of steroids, however no difficulty taking these, no indigestion/reflux type symptoms. Patient denies any prior diagnosis of GERD, gastritis, IBS, or IBD. Patient states during his hospitalization he was tested for coronavirus and was negative. He also underwent CT angiography of the chest as well as an echo of his heart. Patient states he and his are very active, go for bike rides and walks. No recent discomfort in the abdomen or chest with any exertion. Pt seen during a time of high acuity and national emergency pandemic while wearing PPE. Home Medications Home Medications Medication Instructions Recorded Confirmed Type albuterol sulfate 1 puffs INH Q6H PRN #6.7 gm 03/09/20 03/27/20 Rx Allergies Allergy/AdvReac Type Severity Reaction Status Date / Time No Known Allergies Allergy Verified 03/27/20 03:57 Past Med/Surg History Medical History Family history of prostate cancer (Chronic) Hemochromatosis (Chronic) Hepatic steatosis (Chronic) Impaired glucose metabolism (Chronic) Surgical History History of colonoscopy History of tooth extraction Family History Mother COPD (chronic obstructive pulmonary disease) Peripheral vascular disease Kidney disease Father Prostate cancer Stroke Brother Hypertension Hyperlipidemia Social History Preferred Language: Niuean Communication Ability: Effective Visual Impairment: No Limitations Hearing Ability: Normal Pediatric Anesthesiologist Required: No Beliefs That Will Affect Care: None marital status: Current Living Situation: Spouse current occupational status: employed current occupation: [employer] Other Information That Helps Us Care for You: No Feels Safe at Home: Yes Safety Concerns: Feels Safe At This Time Smoking Status: Never smoker Do You Dip or Chew Tobacco: No ; Second Hand Exposure: Yes (until 1979) ; Tobacco Cessation Education Requested by Patient: No Hx Alcohol Use: No Hx Substance Use: No Childhood Exposure to Second-Hand Smoke: Yes caffeine: Yes Dental Care, Regularly: Yes Physical Activity Frequency: 3-4 Times per Week Seatbelt Use: always Sunscreen Use: Yes Review of Systems See HPI for pertinent positives & negatives. and A total of 10 systems reviewed and were otherwise negative Physical Exam Vital Signs Vital Signs - 24 hr 03/27/20 06:00 03/27/20 06:30 03/27/20 07:26 Temperature Temperature Source Pulse Rate 55 L 53 L Pulse Rate [Apical] 46 L Pulse Rate from SpO2 Sensor 54 L Pulse Rhythm [Apical] Regular Pulse Strength [Apical] Normal Respiratory Rate 16 15 16 Respiratory Effort / Characteristics Non-Labored Spontaneous Respiratory Depth Normal Respiratory Pattern Regular Blood Pressure 155/100 H 155/90 H Blood Pressure [Right Arm] 152/87 H Blood Pressure Mean 118 119 Blood Pressure Mean [Right Arm] 108 Blood Pressure Position [Right Arm] Lying Pulse Oximetry 98 98 99 Oxygen Delivery Method Room Air 03/27/20 09:38 03/27/20 12:16 03/27/20 13:46 Temperature 36.7 C Temperature Source Oral Pulse Rate Pulse Rate [Apical] 53 L 44 L 49 L Pulse Rate from SpO2 Sensor Pulse Rhythm [Apical] Regular Regular Regular Pulse Strength [Apical] Normal Normal Normal Respiratory Rate 18 16 18 Respiratory Effort / Characteristics Non-Labored Spontaneous Non-Labored Spontaneous Non-Labored Spontaneous Respiratory Depth Normal Normal Normal Respiratory Pattern Regular Regular Regular Blood Pressure Blood Pressure [Right Arm] 161/87 H 150/81 H 163/75 H Blood Pressure Mean Blood Pressure Mean [Right Arm] 111 104 104 Blood Pressure Position [Right Arm] Lying Sitting Sitting Pulse Oximetry 98 98 99 Oxygen Delivery Method Room Air Room Air Room Air GENERAL: alert, well appearing, well nourished, no distress, non-toxic EYE EXAM: normal conjunctiva, PERRL and EOM's grossly intact OROPHARYNX: no exudate, no erythema, lips, buccal mucosa, and tongue normal and mucous membranes are moist NECK: supple, no nuchal rigidity, no adenopathy, non-tender LUNGS: Clear to auscultation. Normal chest wall mechanics, no w/r/r HEART: no murmurs, S1 normal and S2 normal ABDOMEN: abdomen soft, mild tenderness with palpation of upper abdomen b/l, normo-active bowel sounds, no masses, no rebound or guarding. BACK: Back is symmetrical on inspection and there is no deformity, no midline tenderness, no CVA tenderness. SKIN: no rashes and no bruising, no petechiae UPPER EXTREMITIES: upper extremities are grossly normal. FROM, nml pulses b/l. LOWER EXTREMITIES: No pitting edema. FROM, nml pulses b/l. No calf tenderness. NEURO EXAM: Normal sensorium, cranial nerves II-XII grossly intact, normal speech, no gross weakness of arms, no gross weakness of legs. Gross sensation intact. Course Course 0635: Results discussed with patient at bedside. Agreeable with plan for discussion with surgery as well as repeat troponin. Patient still uncomfortable. 0745: Discussed with Lillian Lake PA-C with general surgery. She will be down to evaluate. We did discuss possible benefit of HIDA scan, she will discuss this with the patient at bedside. 0758: Patient states pain continues to improve although not completely resolved. I did update him on my discussion with general surgery. He is awaiting their evaluation at this time. 0835: Patient seen and evaluated at bedside by Lillian Lake. Patient would l efren to pursue HIDA imaging at this time. Surgery is in agreement. Lillian states that if the HIDA scan is negative, patient can be discharged on a low-fat diet and follow-up with them in the office. 0848: Patient updated on delay while awaiting arrival of nuclear material to perform HIDA. Discussed with patient slightly abnormal EKG despite reassuring labs and recent reassuring echo. Encouraged patient to follow-up with his family doctor. No family history of heart disease per his report. 0911: Case signed out to Dr. Woo. Will follow-up HIDA scan and make disposition. 0932: Discussed EKG's with Dr. Peoples who reviewed them. Discussed pt presentation. Feels less likely cardiac etiology despite slight EKG change given reassuring labs and recent echo. Administered Medications Lactated Ringer's (Lr) 1,000 mls @ 80 mls/hr IV .[id number] [facility] Stop: 04/26/20 17:44 Last Admin: 03/28/20 04:50 Dose: 80 mls/hr Documented by: [id number] Infusion: 03/28/20 04:50 Dose: 80 mls/hr Documented by: [id number] Infusion: 03/27/20 20:01 Dose: 80 mls/hr Documented by: [id number] Infusion: 03/27/20 19:26 Dose: 0 mls/hr Documented by: [id number] Admin: 03/27/20 18:06 Dose: 80 mls/hr Documented by: [id number] Cefoxitin Sodium 1,000 mg/ (Dextrose) 60 mls @ 100 mls/hr IV Q6H [facility] Stop: 03/29/20 18:59 Last Infusion: 03/28/20 00:45 Dose: 0 mls/hr Documented by: [id number] Admin: 03/27/20 23:59 Dose: 100 mls/hr Documented by: [id number] Infusion: 03/27/20 20:01 Dose: 0 mls/hr Documented by: [id number] Admin: 03/27/20 19:25 Dose: 100 mls/hr Documented by: [id number] Discontinued Medications Bacitracin (Bacitracin) Confirm Administered Dose 45 appln .ROUTE .STK-MED ONE Stop: 03/27/20 14:17 Last Admin: 03/27/20 15:51 Dose: 1 appln Documented by: [id number] Bupivacaine HCl (Marcaine 0.5% Mpf) Confirm Administered Dose 30 ml .ROUTE .STK- MED ONE Stop: 03/27/20 14:17 Last Admin: 03/27/20 15:52 Dose: 20 ml Documented by: [id number] Famotidine (Pepcid 20mg Iv Push) 20 mg IV ONE STA Stop: 03/27/20 04:15 Last Admin: 03/27/20 04:25 Dose: 20 mg Documented by: [id number] Acetaminophen (Ofirmev) 1,000 mg in 100 mls @ 400 mls/hr IV NOW STA Stop: 03/27/20 04:28 Last Infusion: 03/27/20 04:40 Dose: 0 mls/hr Documented by: [id number] Admin: 03/27/20 04:25 Dose: 400 mls/hr Documented by: [id number] Sodium Chloride (Nss 1000ml) 1,000 mls @ 250 mls/hr IV .Q4H [facility] Stop: 04/26/20 09:14 Last Admin: 03/27/20 18:15 Dose: Not Given Documented by: [id number] Admin: 03/27/20 18:15 Dose: Not Given Documented by: [id number] Infusion: 03/27/20 17:30 Dose: 0 mls/hr Documented by: [id number] Admin: 03/27/20 09:42 Dose: 250 mls/hr Documented by: [id number] Ceftriaxone Sodium (Rocephin) 2,000 mg in 70 mls @ 140 mls/hr IV NOW STA Stop: 03/27/20 13:22 Last Infusion: 03/27/20 17:30 Dose: 0 mls/hr Documented by: [id number] Admin: 03/27/20 13:16 Dose: 140 mls/hr Documented by: [id number] Ketorolac Tromethamine (Toradol) 10 mg IV NOW ONE Stop: 03/27/20 06:59 Last Admin: 03/27/20 07:26 Dose: 10 mg Documented by: [id number] Lidocaine HCl (Xylocaine 1% (Local)) Confirm Administered Dose 20 ml .ROUTE .STK-MED ONE Stop: 03/27/20 14:17 Last Admin: 03/27/20 15:53 Dose: 20 ml Documented by: [id number] Morphine Sulfate (Morphine Sulfate) Confirm Administered Dose 2 mg .ROUTE .ThisClicks- MED ONE Stop: 03/27/20 11:22 Last Admin: 03/27/20 18:13 Dose: Not Given Documented by: [id number] Medical Decision Making Differential Diagnosis Differential diagnoses includes but is not limited to gastritis, peptic ulcer disease, GERD, gallbladder disease, pancreatitis, small bowel obstruction, acute coronary syndrome, pericarditis, ischemic bowel, irritable bowel disease, irrita ble bowel syndrome, appendicitis, diverticulitis, malignancy, hernia, urinary tract infection, torsion, perforation, trauma, infectious. Medical Records Attestation: I reviewed the patient's medical records. Home Medications Current Medication List: was personally reviewed by me Laboratory Data Attestation: I reviewed the patient's lab results. Result diagrams: 03/27/20 03:44 03/27/20 03:44 Lab Results 03/27/20 03/27/20 03/27/20 Range/Units 03:44 03:44 03:44 WBC 4.93 (4.8-10.8) K/uL RBC 5.28 (4.7-6.1) M/uL Hgb 16.0 (14.0-18.0) g/dL Hct 47.1 (42-52) % MCV 89.2 (80-100) fL MCH 30.3 (25-34) pg MCHC 34.0 (32-36) g/dL RDW Std Deviation 43.6 (36.4-46.3) fL RDW Coeff of Gregory 13.3 (11.5-14.5) % Plt Count 123 L (130-400) K/uL MPV 10.7 H (7.4-10.4) fL Immature Gran % (Auto) 0.0 % Neut % (Auto) 58.2 % Lymph % (Auto) 26.6 % [place] % (Auto) 6.5 % Eos % (Auto) 8.5 % Baso % (Auto) 0.2 % Neut # (Auto) 2.87 (1.4-6.5) K/uL Lymph # (Auto) 1.31 (1.2-3.4) K/uL [place] # (Auto) 0.32 (0.11-0.59) K/uL Eos # (Auto) 0.42 (0-0.5) K/uL Baso # (Auto) 0.01 (0-0.2) K/uL Immature Gran # (Auto) 0.00 (0.00-0.02) K/uL PT 10.5 (9.0-12.0) Seconds INR 1.0 (0.9-1.1) Sodium 143 (136-145) mmol/L Potassium 3.7 (3.5-5.1) mmol/L Chloride 110 H (98-107) mmol/L Carbon Dioxide 28 (21-32) mmol/L Anion Gap 5.0 (3-11) BUN 22 H (7-18) mg/dl Creatinine 1.07 (0.6-1.4) mg/dl Est Cr Clr Drug Dosing 74.3 ml/min Est GFR ( Amer) 87.6 Est GFR (Non-Af Amer) 75.6 BUN/Creatinine Ratio 20.9 H (10-20) Glucose 101 H (70-99) mg/dl Lactate (0.4-2.0) mmol/L Calcium 9.4 (8.5-10.1) mg/dl Magnesium 2.3 (1.8-2.4) mg/dl Total Bilirubin 1.0 (0.2-1) mg/dl AST 15 (15-37) U/L ALT 31 (12-78) U/L Alkaline Phosphatase 60 (45-117) U/L Troponin I < 0.015 (0-0.045) ng/ml Total Protein 6.6 (6.4-8.2) gm/dl Albumin 3.5 (3.4-5.0) gm/dl Globulin 3.1 (2.5-4.0) gm/dl Albumin/Globulin Ratio 1.1 (0.9-2) Lipase 217 (73-393) U/L 03/27/20 03/27/20 Range/Units 04:23 07:24 WBC (4.8-10.8) K/uL RBC (4.7-6.1) M/uL Hgb (14.0-18.0) g/dL Hct (42-52) % MCV (80-100) fL MCH (25-34) pg MCHC (32-36) g/dL RDW Std Deviation (36.4-46.3) fL RDW Coeff of Gregory (11.5-14.5) % Plt Count (130-400) K/uL MPV (7.4-10.4) fL Immature Gran % (Auto) % Neut % (Auto) % Lymph % (Auto) % [place] % (Auto) % Eos % (Auto) % Baso % (Auto) % Neut # (Auto) (1.4-6.5) K/uL Lymph # (Auto) (1.2-3.4) K/uL [place] # (Auto) (0.11-0.59) K/uL Eos # (Auto) (0-0.5) K/uL Baso # (Auto) (0-0.2) K/uL Immature Gran # (Auto) (0.00-0.02) K/uL PT (9.0-12.0) Seconds INR (0.9-1.1) Sodium (136-145) mmol/L Potassium (3.5-5.1) mmol/L Chloride (98-107) mmol/L Carbon Dioxide (21-32) mmol/L Anion Gap (3-11) BUN (7-18) mg/dl Creatinine (0.6-1.4) mg/dl Est Cr Clr Drug Dosing ml/min Est GFR ( Amer) Est GFR (Non-Af Amer) BUN/Creatinine Ratio (10-20) Glucose (70-99) mg/dl Lactate 1.4 (0.4-2.0) mmol/L Calcium (8.5-10.1) mg/dl Magnesium (1.8-2.4) mg/dl Total Bilirubin (0.2-1) mg/dl AST (15-37) U/L ALT (12-78) U/L Alkaline Phosphatase (45-117) U/L Troponin I < 0.015 (0-0.045) ng/ml Total Protein (6.4-8.2) gm/dl Albumin (3.4-5.0) gm/dl Globulin (2.5-4.0) gm/dl Albumin/Globulin Ratio (0.9-2) Lipase (73-393) U/L Imaging Data Radiologist's Impression: Ultrasound right upper quadrant: Impression: Fatty liver Gallstones including gallbladder neck calculus. Unable to evaluate ultrasound Sifuentes sign aspiration on pain medication. Gallbladder is distended measuring up to 9.5 cm in length. Gallbladder wall thickness measures 1.4 mm. Imaging findings indicate hydropic gallbladder with cholelithiasis. Normal CBD caliber. No evidence of right hydronephrosis. Radiologist: Curtis Rodriguez MD ECG Data Attestation: I personally reviewed and interpreted this ECG as follows: Indication: + abdominal pain Rate (beats per minute): 41 Rhythm: + sinus bradycardia ECG Intervals/blocks: + Normal QRS and + Normal QT ECG [place]: + Left axis deviation ECG ST segments: + T-wave inversions (III, aVF) Additional Comments: Repeat EKG performed at 0 844 shows a sinus bradycardia at 43, left axis, normal QRS and QTc, T wave inversions again noted in leads III and aVF, no other new or evolving changes including no ST elevation/depression Blood Pressure Blood Pressure Findings: Elevated blood pressure Blood Pressure Disposition: Referred to patients primary care provider MDM Narrative Patient presenting with upper abdominal pain. Labs drawn and sent and were reassuring. Mild thrombocytopenia noted. H&H otherwise stable, no significant leukocytosis. Patient's other labs including a lactic acid were reassuring. No recent change in diet. No history of GERD. Ultrasound performed to rule out biliary colic and showed patient did have cholelithiasis although no evidence of acute cholecystitis. Patient had initially declined narcotic pain medication, was started with Pepcid, Tylenol and then Toradol was eventually added and patient reported feeling proved although symptoms were not completely resolved. Due to findings on ultrasound and persistent discomfort, I did discuss the case with general surgery. The PA-C with general surgery did come and evaluate the patient at bedside. Based on their discussion, they requested that a HIDA scan be added. Pending the results of the HIDA scan they would determine final disposition but felt if negative, patient could be followed up as an outpatient and they will schedule him for elective cholecystectomy. The HIDA scan was signed out to Dr. woo to follow-up for final disposition. Patient did have a slightly abnormal EKG was noted to be slightly bradycardic. This was discussed with cardiology as a precaution. Two troponins were negative and 2 EKGs unchanged. I do not suspect acute cardiac etiology of his upper abdominal pain. I do not suspect mesenteric ischemia, colitis, perforation, GI bleed, choledocholithiasis, pancreatitis. Patient made aware of all results and was in agreement with plan. Patient well-appearing here throughout and hemodynamically stable otherwise. An order was placed for continuous cardiac monitoring. The monitor shows a rate of 56 with sinus bradycardia rhythm. Impression & Plan Abdominal pain, Cholelithiasis, Thrombocytopenia, Bradycardia, Abnormal ECG Discharge Plan Visit Data *Final* Discharge Date/Time: 03/27/20 13:29 Chief Complaint: Abdominal Pain Stated Complaint: UPR ABDOMINAL PAIN WRAP AROUND TO BACK ED Provider: Alfred Woo Discharge Problem: Abdominal pain, Cholelithiasis, Thrombocytopenia, Bradycardia, Abnormal ECG Patient Disposition: Still a Patient Condition: Good Discharge Instructions Interventions: ED Discharge Assessment Last Done: 03/27/20 13:26 Risk - HEART Scoring HEART Score for Major Cardiac Events History: Slightly Suspicious EKG: Non-Specific Repolarization Disturbance Age: 45-64 Years of Age Risk Factors: No Known Risk Factors Initial Troponin: Normal Limit Total Points: 2 Risk Level: Low Risk for Major Adverse Cardiac Event HEART Score Interpretation: Score interpretation (as per derivation study): HEART Adverse Cardiac Score Event Risk Management 0-3 0.9-1.7% In the HEART Score study, these patients were discharged. 4-6 12-16.6% In the HEART Score study, these patients were admitted to the hospital. 7-10 50-65% In the HEART Score study, these patients were candidates for early invasive measurements. Original Source: 1. Tr AJ, Maryellen BE, Mariama LIDIA. Chest pain in the emergency room: value of the HEART score. Net Heart J. 2008; 16(6):191-6. Discharge Problem: Abdominal pain Qualifiers: Abdominal location: upper abdomen, unspecified Qualified Code(s): R10.10 - Upper abdominal pain, unspecified Cholelithiasis Qualifiers: Cholelithiasis location: gallbladder and bile duct Cholecystitis presence: without cholecystitis Biliary obstruction: without biliary obstruction Qualified Code(s): K80.70 - Calculus of gallbladder and bile duct without cholecystitis without obstruction
[2020-03-27] MEDS ORDERED: FAMOTIDINE 20MG/5ML IV PUSH IV STA (04:14)
[2020-03-27] MEDS ORDERED: ACETAMINOPHEN 1,000 MG/100 ML VIAL IV STA (04:14)
[2020-03-27 04:28] LABS: Basophils # (auto) 0.01 K/uL (0-0.2); Basophils % (auto) 0.2 %; Eosinophils # (auto) 0.42 K/uL (0-0.5); Eosinophils % (auto) 8.5 %; Hematocrit (blood only) 47.1 % (42-52); Lymphocytes # (auto) 1.31 K/uL (1.2-3.4); Lymphocytes % (auto) 26.6 %; Mean Corpuscular Hemoglobin 30.3 pg (25-34); Mean Corpuscular Volume 89.2 fL (80-100); Mean Platelet Volume 10.7 fL (7.4-10.4); Monocytes # (auto) 0.32 K/uL (0.11-0.59); Monocytes % (auto) 6.5 %; Neutrophils # (auto) 2.87 K/uL (1.4-6.5); Neutrophils % (auto) 58.2 %; Platelet Count 123 K/uL (130-400); RDW Coefficient of Variation 13.3 % (11.5-14.5); RDW Standard Deviation 43.6 fL (36.4-46.3); Red Blood Count 5.28 M/uL (4.7-6.1); White Blood Count 4.93 K/uL (4.8-10.8)
[2020-03-27 04:33] LABS: Prothrombin Time 10.5 Seconds (9.0-12.0)
[2020-03-27 04:36] LABS: Alanine Aminotransferase 31 U/L (12-78); Albumin Level 3.5 gm/dl (3.4-5.0); Aspartate Aminotransferase 15 U/L (15-37); BUN Creatinine Ratio 20.9 (10-20); Blood Urea Nitrogen 22 mg/dl (7-18); Calcium 9.4 mg/dl (8.5-10.1); Carbon Dioxide 28 mmol/L (21-32); Chloride 110 mmol/L (98-107); Creatinine Clr Calc Pharmacy 74.3 ml/min; Est GFR (African American) 87.6; Est GFR (Non-African American) 75.6; Glucose 101 mg/dl (70-99); Lipase 217 U/L (73-393); Magnesium 2.3 mg/dl (1.8-2.4); Potassium 3.7 mmol/L (3.5-5.1); Sodium 143 mmol/L (136-145)
[2020-03-27 04:41] LABS: Albumin Globulin Ratio 1.1 (0.9-2); Alkaline Phosphatase 60 U/L (45-117); Globulin 3.1 gm/dl (2.5-4.0); Total Protein 6.6 gm/dl (6.4-8.2); Troponin I < 0.015 ng/ml (0-0.045)
[2020-03-27] MEDS ORDERED: KETOROLAC TROMETHAMINE 15 MG/ML VIAL IV ONE (06:58)
--- NOTE | 2020-03-27 07:38 | Ultrasound Report ---
ABDOMINAL ULTRASOUND, RIGHT UPPER QUADRANT HISTORY: upper abd pain. COMPARISON: None. FINDINGS: Pancreas: The pancreatic tail is obscured by overlying bowel gas. The remaining portions of the pancr eas are within normal limits. Liver: The liver is echogenic consistent with fatty change. Gallbladder: A few small gallstones. No gallbladder wall thickening. Gallbladder is distended. Possib le 6 mm stone at the gallbladder neck. This remains throughout the examination and could be impacted. Unable to assess for sonographic Sifuentes's sign due to patient medication. CBD: 3 mm. Right kidney: No hydronephrosis. IMPRESSION: Distended gallbladder containing a few small stones. There may be a 6 mm stone at the gallbladder nec k which could be impacted. Clinical correlation recommended to assess for developing acute cholecysti tis. Follow-up HIDA scan can also be performed for further evaluation. ACT 112: Negative or not required by law. Electronically signed by: Vic Gleason M.D. 03/27/2020 7:36 AM
--- NOTE | 2020-03-27 07:42 | XRay Report ---
PA CHEST WITH ABDOMINAL SERIES CLINICAL HISTORY: Upper abdominal pain. FINDINGS: A PA chest radiograph is compared to study dated 03/08/2020 and correlated with chest CT dated 03/09/2020 . The heart is top normal for projection. The mediastinal contour is within normal limits. An accesso ry azygous fissure is incidentally noted. The lungs and pleural spaces are clear. No pneumothorax is seen. The bony thorax is grossly intact. Supine and erect abdominal radiographs are obtained. No prior studies are available for comparison at the time of dictation. There is a nonobstructed abdominal bowel gas pattern. Moderate fecal retenti on is noted in the colon. No evidence of intraperitoneal free air is seen. There are no abnormal abdo marley calcifications. The lumbosacral spine and bony pelvis appear intact. IMPRESSION: 1. No active disease in the chest. 2. Nonobstructed abdominal bowel gas pattern. ACT 112: Negative or not required by law. Electronically signed by: Nicolas Vaughan M.D. 03/27/2020 7:41 AM
--- NOTE | 2020-03-27 08:36 | Surgery Consultation ---
Date of Consultation March 27, 2020 Assessment & Plan (1) Cholelithiasis: 59 year-old male with sudden onset of upper abdominal pain with radiation around his back at 1 am. No fever, chills, nausea, vomiting, changes in bowel habits. Ultrasound showing gallstones with distended gallbladder, possible 6 mm stone in neck of gallbladder. No pericholecystic fluid or gallbladder wall thickening. CBD 3 mm. No leukocytosis, t. bili, lfts wnl. Afebrile. Exam unremarkable. Negative Sifuentes's sign or tenderness (given Toradol at 7:30 am) Plan: Discussed with patient imaging and lab results. Ultrasound is showing gallstones. Discussed possibility of stone in neck of gallbladder which could cause obstruction, cholecystitis, infection. Not currently showing any signs of acute cholecystitis. Discussed surgical option of laparoscopic cholecystectomy and recovery time. Discussed HIDA scan to rule out obstruction due to ultrasound showing possible stone in neck of gallbladder as there is a chance that if he goes home he could come back with recurrent symptoms or worse cholecystitis/infection. He would like to obtain HIDA scan to rule out obstruction, if normal close outpatient follow-up to discuss elective cholecystectomy with dietary restrictions of low fat diet. Discussed recommendations with Dr. Mendez as well as attending Dr. Price. Thank you for Consultation. base on U/S, HIDA scan finding- acute cholecystitis, with cholelithiasis, I recommend to do laparoscopic cholecystectomy, possible open or cholangiogram, D/W benefits, risks and alternatives of the surgery, the risks - infection, bleeding, injury CBD, may need ERCP, CT, pt understood, he agrees with the surgery, I answered all questions, (2) Abdominal pain: secondary to above History of Present Illness Reason for Consultation: Abdominal pain, gallstones Requesting Physician: Dr. Mendez Attending Physician: Dr. Mendez History of Present Illness Rickie is a 59 year-old male who presented to ED this morning with complaint of abdominal pain that suddenly woke him up around 1 am. States he was in normal state of health prior to going to bed. Pain located upper abdomen with radiation around to his back. about 2-3/10 in severity. Denies of any fever, chills, nausea, vomiting, chest pain, shortness of breath, changes in bowel habits, diarrhea, constipation, blood in stools, melena, hematochezia, acholic stools, dysuria or hematuria. No gallbladder issues in past. No family history of gallbladder issues. No prior abdominal surgeries. No recent change in diet. Had Tylenol and Toradol and states pain is better currently 10/14. ER work-up included labs which showed no leukocytosis, lfts, t. bili wnl. Afebrile. Gallbladder US showing gallstones with distended gallbladder, possible 6 mm stone in neck of gallbladder CBD 3 mm. No pericholecystic fluid. Allergies Allergy/AdvReac Type Severity Reaction Status Date / Time No Known Allergies Allergy Verified 03/27/20 03:57 Home Medications Home Medications Medication Instructions Recorded Confirmed Type albuterol sulfate 1 puffs INH Q6H PRN #6.7 gm 03/09/20 03/27/20 Rx Patient History Medical History Family history of prostate cancer (Chronic) Hemochromatosis (Chronic) Hepatic steatosis (Chronic) Impaired glucose metabolism (Chronic) Surgical History History of colonoscopy History of tooth extraction Family History Mother COPD (chronic obstructive pulmonary disease) Peripheral vascular disease Kidney disease Father Prostate cancer Stroke Brother Hypertension Hyperlipidemia Social History Preferred Language: Cypriot Communication Ability: Effective Visual Impairment: No Limitations Hearing Ability: Normal Upper Cutter Out Required: No Beliefs That Will Affect Care: None marital status: Current Living Situation: Spouse current occupational status: employed current occupation: [employer] Safe at Home: Yes Smoking Status: Never smoker Hx Alcohol Use: No Hx Substance Use: No Childhood Exposure to Second-Hand Smoke: Yes caffeine: Yes Dental Care, Regularly: Yes Physical Activity Frequency: 3-4 Times per Week Seatbelt Use: always Sunscreen Use: Yes Review of Systems Review of Systems: All systems reviewed & are unremarkable except as noted in HPI & below Physical Exam Constitutional: WD/WN, vitals as above no acute distress Respiratory: normal respiratory effort, lungs clear to auscultation Cardiovascular: RRR, no murmur, no edema Gastrointestinal (Abdomen): Inspection/Auscultation: abdomen normal to inspection and normal bowel sounds; abdomen not distended Percussion/Palpation: abdomen soft; abdomen nontender, no guarding and abdomen not rigid Skin: no rashes, warm and dry Psychiatric: A+Ox3, euthymic affect Results & Data Vital Signs (Past 12 Hours) Vital Signs Temp Pulse Pulse Resp BP BP Pulse Ox 03/27/20 07:26 46 L 16 152/87 H 99 03/27/20 06:30 53 L 15 155/90 H 98 03/27/20 06:00 55 L 16 155/100 H 98 03/27/20 04:00 47 L 18 185/90 H 99 03/27/20 03:46 52 L 15 195/90 H 99 03/27/20 03:23 36.4 C L 53 L 18 168/89 H 100 Laboratory Results 03/27/20 03/27/20 03/27/20 Range/Units 07:24 04:23 03:44 WBC (4.8-10.8) K/uL RBC (4.7-6.1) M/uL Hgb (14.0-18.0) g/dL Hct (42-52) % MCV (80-100) fL MCH (25-34) pg MCHC (32-36) g/dL RDW Std Deviation (36.4-46.3) fL RDW Coeff of Gregory (11.5-14.5) % Plt Count (130-400) K/uL MPV (7.4-10.4) fL Immature Gran % (Auto) % Neut % (Auto) % Lymph % (Auto) % [place] % (Auto) % Eos % (Auto) % Baso % (Auto) % Neut # (Auto) (1.4-6.5) K/uL Lymph # (Auto) (1.2-3.4) K/uL [place] # (Auto) (0.11-0.59) K/uL Eos # (Auto) (0-0.5) K/uL Baso # (Auto) (0-0.2) K/uL Immature Gran # (Auto) (0.00-0.02) K/uL PT (9.0-12.0) Seconds INR (0.9-1.1) Sodium 143 (136-145) mmol/L Potassium 3.7 (3.5-5.1) mmol/L Chloride 110 H (98-107) mmol/L Carbon Dioxide 28 (21-32) mmol/L Anion Gap 5.0 (3-11) BUN 22 H (7-18) mg/dl Creatinine 1.07 (0.6-1.4) mg/dl Est Cr Clr Drug Dosing 74.3 ml/min Est GFR ( Amer) 87.6 Est GFR (Non-Af Amer) 75.6 BUN/Creatinine Ratio 20.9 H (10-20) Glucose 101 H (70-99) mg/dl Lactate 1.4 (0.4-2.0) mmol/L Calcium 9.4 (8.5-10.1) mg/dl Magnesium 2.3 (1.8-2.4) mg/dl Total Bilirubin 1.0 (0.2-1) mg/dl AST 15 (15-37) U/L ALT 31 (12-78) U/L Alkaline Phosphatase 60 (45-117) U/L Troponin I < 0.015 < 0.015 (0-0.045) ng/ml Total Protein 6.6 (6.4-8.2) gm/dl Albumin 3.5 (3.4-5.0) gm/dl Globulin 3.1 (2.5-4.0) gm/dl Albumin/Globulin Ratio 1.1 (0.9-2) Lipase 217 (73-393) U/L 03/27/20 03/27/20 Range/Units 03:44 03:44 WBC 4.93 (4.8-10.8) K/uL RBC 5.28 (4.7-6.1) M/uL Hgb 16.0 (14.0-18.0) g/dL Hct 47.1 (42-52) % MCV 89.2 (80-100) fL MCH 30.3 (25-34) pg MCHC 34.0 (32-36) g/dL RDW Std Deviation 43.6 (36.4-46.3) fL RDW Coeff of Gregory 13.3 (11.5-14.5) % Plt Count 123 L (130-400) K/uL MPV 10.7 H (7.4-10.4) fL Immature Gran % (Auto) 0.0 % Neut % (Auto) 58.2 % Lymph % (Auto) 26.6 % [place] % (Auto) 6.5 % Eos % (Auto) 8.5 % Baso % (Auto) 0.2 % Neut # (Auto) 2.87 (1.4-6.5) K/uL Lymph # (Auto) 1.31 (1.2-3.4) K/uL [place] # (Auto) 0.32 (0.11-0.59) K/uL Eos # (Auto) 0.42 (0-0.5) K/uL Baso # (Auto) 0.01 (0-0.2) K/uL Immature Gran # (Auto) 0.00 (0.00-0.02) K/uL PT 10.5 (9.0-12.0) Seconds INR 1.0 (0.9-1.1) Sodium (136-145) mmol/L Potassium (3.5-5.1) mmol/L Chloride (98-107) mmol/L Carbon Dioxide (21-32) mmol/L Anion Gap (3-11) BUN (7-18) mg/dl Creatinine (0.6-1.4) mg/dl Est Cr Clr Drug Dosing ml/min Est GFR ( Amer) Est GFR (Non-Af Amer) BUN/Creatinine Ratio (10-20) Glucose (70-99) mg/dl Lactate (0.4-2.0) mmol/L Calcium (8.5-10.1) mg/dl Magnesium (1.8-2.4) mg/dl Total Bilirubin (0.2-1) mg/dl AST (15-37) U/L ALT (12-78) U/L Alkaline Phosphatase (45-117) U/L Troponin I (0-0.045) ng/ml Total Protein (6.4-8.2) gm/dl Albumin (3.4-5.0) gm/dl Globulin (2.5-4.0) gm/dl Albumin/Globulin Ratio (0.9-2) Lipase (73-393) U/L Diagnostic Findings ABDOMINAL ULTRASOUND, RIGHT UPPER QUADRANT HISTORY: upper abd pain. COMPARISON: None. FINDINGS: Pancreas: The pancreatic tail is obscured by overlying bowel gas. The remaining portions of the pancreas are within normal limits. Liver: The liver is echogenic consistent with fatty change. Gallbladder: A few small gallstones. No gallbladder wall thickening. Gallbladder is distended. Possible 6 mm stone at the gallbladder neck. This remains throughout the examination and could be impacted. Unable to assess for sonographic Sifuentes's sign due to patient medication. CBD: 3 mm. Right kidney: No hydronephrosis. IMPRESSION: Distended gallbladder containing a few small stones. There may be a 6 mm stone at the gallbladder neck which could be impacted. Clinical correlation recommended to assess for developing acute cholecystitis. Follow-up HIDA scan can also be performed for further evaluation. NUCLEAR MEDICINE HEPATOBILIARY SCAN HISTORY: Right upper quadrant pain. cholelithiasis COMPARISON: Abdominal ultrasound 03/27/2020. TECHNIQUE: Immediately following the intravenous administration of 5.6 mCi Tc- 99m Choletec, dynamic anterior abdominal imaging was performed for total of 60 minutes. An additional 30 minutes of dynamic abdominal imaging was performed following the intravenous administration of 2 mg of morphine.. FINDINGS: Uniform hepatic tracer accumulation is shown. Prompt intrahepatic biliary excretion is seen. The common bile duct and small bowel are visualized by 20 minutes. The gallbladder is not identified and on the initial 60 minutes imaging. Therefore, intravenous morphine was administered. An additional 30 minutes of imaging was also performed. The gallbladder is not identified on the additional 30 minutes of imaging. IMPRESSION: Above findings consistent with cystic duct obstruction/acute cholecystitis. (1) Abdominal pain Abdominal location: upper abdomen, unspecified Qualified Code(s): R10.10 - Upper abdominal pain, unspecified (2) Cholelithiasis Biliary obstruction: without biliary obstruction Cholecystitis presence: without cholecystitis Cholelithiasis location: gallbladder and bile duct Qualified Code(s): K80.70 - Calculus of gallbladder and bile duct without cholecystitis without obstruction
--- NOTE | 2020-03-27 09:13 | Emergency Department Note ---
ED Visit Note The patient was taken in signout from Dr. Mendez at the change of shift. Please see that note for details. In brief the patient is a 59-year-old gentleman presenting with upper abdominal pain. The patient was pending HIDA scan for upper abdominal pain given gallbladder noted to have gallstone in the gallbladder neck. LFTs do not show any evidence of biliary obstruction however. The patient was seen by surgery and if HIDA scan is negative can be discharged with outpatient follow-up. If it is positive then they will be contacted. HIDA scan was subsequently consistent with cystic duct obstruction/acute cholecystitis. The patient was reevaluated and continued to be in no distress, afebrile with stable vital signs. General surgery was contacted and case was reviewed with Lillian Daily general surgery ALVIN and Dr. Price, general surgery on-call who evaluated the patient and will admit to the OR. Patient was given ceftriaxone. -- NUCLEAR MEDICINE HEPATOBILIARY SCAN HISTORY: Right upper quadrant pain. cholelithiasis COMPARISON: Abdominal ultrasound 03/27/2020. TECHNIQUE: Immediately following the intravenous administration of 5.6 mCi Tc- 99m Choletec, dynamic anterior abdominal imaging was performed for total of 60 minutes. An additional 30 minutes of dynamic abdominal imaging was performed following the intravenous administration of 2 mg of morphine.. FINDINGS: Uniform hepatic tracer accumulation is shown. Prompt intrahepatic biliary excretion is seen. The common bile duct and small bowel are visualized by 20 min utes. The gallbladder is not identified and on the initial 60 minutes imaging. Therefore, intravenous morphine was administered. An additional 30 minutes of imaging was also performed. The gallbladder is not identified on the additional 30 minutes of imaging. IMPRESSION: Above findings consistent with cystic duct obstruction/acute cholecystitis. . : Abdominal pain Qualifiers: Abdominal location: upper abdomen, unspecified Qualified Code(s): R10.10 - Upper abdominal pain, unspecified Cholelithiasis Qualifiers: Cholelithiasis location: gallbladder and bile duct Cholecystitis presence: without cholecystitis Biliary obstruction: without biliary obstruction Qualified Code(s): K80.70 - Calculus of gallbladder and bile duct without cholecystitis without obstruction
[2020-03-27] MEDS: SODIUM CHLORIDE 0.9% 1000ML 1,000 ML IV SCH ×2 (09:42→18:15)
[2020-03-27] MEDS ORDERED: MoRPHine SULFATE 2 MG/ML CARP ONE (11:21)
--- NOTE | 2020-03-27 12:11 | Nuclear Medicine Report ---
NUCLEAR MEDICINE HEPATOBILIARY SCAN HISTORY: Right upper quadrant pain. cholelithiasis COMPARISON: Abdominal ultrasound 03/27/2020. TECHNIQUE: Immediately following the intravenous administration of 5.6 mCi Tc-99m Choletec, dynamic a nterior abdominal imaging was performed for total of 60 minutes. An additional 30 minutes of dynamic abdominal imaging was performed following the intravenous administration of 2 mg of morphine.. FINDINGS: Uniform hepatic tracer accumulation is shown. Prompt intrahepatic biliary excretion is seen. The comm on bile duct and small bowel are visualized by 20 minutes. The gallbladder is not identified and on t he initial 60 minutes imaging. Therefore, intravenous morphine was administered. An additional 30 min utes of imaging was also performed. The gallbladder is not identified on the additional 30 minutes of imaging. IMPRESSION: Above findings consistent with cystic duct obstruction/acute cholecystitis. ACT 112: Negative or not required by law. Electronically signed by: Vic Gleason M.D. 03/27/2020 12:10 PM
[2020-03-27] MEDS ORDERED: cefTRIAXone SODIUM 2,000 MG/70 ML BAG IV STA (12:53)
--- NOTE | 2020-03-27 13:10 | History & Physical Bridge Note ---
Date of Service March 27, 2020 History & Physical Bridge Note I have examined the patient, reviewed the History & Physical and in the interval since the performance of the History & Physical I have noted the following changes of clinical significance: no changes noted
[2020-03-27] MEDS ORDERED: fentaNYL citrate 100 MCG/2 ML VIAL ONE ×2 (13:28→15:11)
[2020-03-27] MEDS ORDERED: MIDAZOLAM HCL 1 MG/ML 2ML VIAL ONE (13:28)
[2020-03-27] MEDS ORDERED: ATROPINE SULFATE 0.1 MG/ML 10ML SYR IV PRN (13:40)
[2020-03-27] MEDS ORDERED: fentaNYL citrate 100 MCG/2 ML VIAL IV PRN (13:40)
[2020-03-27] MEDS ORDERED: HYDROmorphone INJ 1 MG/ML SYRINGE IV PRN ×2 (13:40→17:33)
[2020-03-27] MEDS ORDERED: ePHEDrine sulfate 50 MG/ML AMP IV PRN (13:40)
[2020-03-27] MEDS ORDERED: ONDANSETRON INJ 2 MG/ML 2 ML VIAL IV PRN ×2 (13:40→17:33)
--- NOTE | 2020-03-27 13:47 | Anesthesiology Consultation ---
Date of Service March 27, 2020 Assessment & Plan (1) Encounter for pre-operative examination: Chart Review Chart Review: Acceptable Risk for Surgery and Patient NOT seen in Pre Admission Testing pt normally bradycardic per his report. active and bikes often Consults Requested none History Surgery Operation Date: 03/27/20 11:20 Proposed Procedures p Laparoscopic Cholecystectomy - Jonathon Price MD Height/Weight Height: 5 ft 9 in Weight: 80.6 kg Allergies Allergy/AdvReac Type Severity Reaction Status Date / Time No Known Allergies Allergy Verified 03/27/20 03:57 Medications Home Medications Medication Instructions Recorded Confirmed Last Taken albuterol sulfate 1 puffs INH Q6H PRN #6.7 gm 03/09/20 03/27/20 Unknown Active Medications Generic Name Dose Route Start Last Admin Trade Name Freq PRN Reason Stop Dose Admin Sodium Chloride 1,000 mls @ 250 mls/hr 03/27/20 09:15 03/27/20 09:42 Nss 1000ml IV 04/26/20 09:14 250 mls/hr .Q4H MANJINDER Administration Past Medical History Medical History Family history of prostate cancer (Chronic) Hemochromatosis (Chronic) Hepatic steatosis (Chronic) Impaired glucose metabolism (Chronic) Patient recently admitted for acute bronchitis. COVID negative. Completed steroids. SOB improved. Exercise / Class Metabolic Activity II 4-5 Yardwork/Stairs/Walk up hill Past Family History Family History Mother COPD (chronic obstructive pulmonary disease) Peripheral vascular disease Kidney disease Father Prostate cancer Stroke Brother Hypertension Hyperlipidemia Past Surgical History Surgical History History of colonoscopy History of tooth extraction Past Anesthesia History No Hx of Anesthesia Complications and No Family Hx of Anesthesia Complications History of PONV No Hx of PONV and No Hx of Motion Sickness Social History Smoking Status: Never smoker Do You Dip or Chew Tobacco: No Hx Alcohol Use: No Hx Substance Use: No Physical Exam Vital Signs Last Vital Signs Temp 36.7 C 03/27/20 13:46 Pulse 49 L 03/27/20 13:46 Resp 18 03/27/20 13:46 BP 163/75 H 03/27/20 13:46 Pulse Ox 99 03/27/20 13:46 Testing Laboratory Results 03/27/20 03:44 03/27/20 03:44 PT 10.5 Seconds (9.0-12.0) 03/27/20 03:44 INR 1.0 (0.9-1.1) 03/27/20 03:44 Electrocardiogram Date: 03/27/20 Findings: + SB @ (43) Marked sinus bradycardia Minimal voltage criteria for LVH, may be normal variant Abnormal ECG When compared with ECG of 27-MAR-2020 03:36, (unconfirmed) No significant change was found Echocardiogram Date: 03/09/20 EF: 65-70% Normal LV size and function. EF 65-70%. No RWMA. No valvular abnormalities.
[2020-03-27] MEDS ORDERED: BACITRACIN OINT 15 GM TUBE ONE (14:16)
[2020-03-27] MEDS ORDERED: BUPIVACAINE 0.5 % 5 MG/1 ML MPF 30ML VIAL ONE (14:16)
[2020-03-27] MEDS ORDERED: LIDOCAINE HCL 1% 20 ML VIAL ONE (14:16)
[2020-03-27] MEDS ORDERED: GLYCOPYRROLATE 0.2 MG/ML VIAL ONE ×2 (14:55→15:50)
[2020-03-27] MEDS ORDERED: NEOSTIGMINE METHYLSULFATE 5 MG/5 ML SYR ONE (14:55)
[2020-03-27] MEDS ORDERED: PROPOFOL IV EMULSION 10 MG/ML 20 ML VIAL IV ONE (14:55)
[2020-03-27] MEDS ORDERED: LIDOCAINE HCL 2% 2 ML VIAL/AMP(20MG/ML) INFIL ONE (14:55)
[2020-03-27] MEDS ORDERED: SUCCINYLCHOLINE CHLORIDE 20 MG/ML 10 ML VIAL IV ONE (14:55)
[2020-03-27] MEDS ORDERED: ROCURONIUM BROMIDE 10 MG/ML 5 ML VIAL IV ONE (14:55)
[2020-03-27] MEDS ORDERED: ONDANSETRON INJ 2 MG/ML 2 ML VIAL ONE (14:56)
[2020-03-27] MEDS ORDERED: DEXAMETHASONE SOD INJ 4 MG/ML VIAL ONE (14:56)
--- NOTE | 2020-03-27 15:51 | Post Operative Brief Note ---
Immediate Post Op Note v1 Date of Surgery March 27, 2020 Pre & Post Diagnosis Operation Date: 03/27/20 11:20 Pre-Op Diagnosis: Acute cholecystitis, with cholelithiasis Post-Op Diagnosis: Acute cholecystitis, with cholelithiasis I identified the patient and participated in the time-out.: Yes Procedure Operation Date: 03/27/20 11:20 Actual Procedures p Laparoscopic Cholecystectomy(Not Applicable) - Jonathon Price MD Surgeon Jonathon Price MD Dining Host VIVEK Luevano Estimated Blood Loss 20 Findings Consistent with Post-Op Diagnosis Fluids 1000ml Specimens gallbladder Anesthesia Type General Complications none Disposition Accompanied Patient To Recovery: Yes Disposition: Recovery Room Overlapping Procedure I was immediately available: during the entire case.
--- NOTE | 2020-03-27 15:52 | Electrocardiogram Report ---
Test Reason : Blood Pressure : / mmHG Vent. Rate : 041 BPM Atrial Rate : 041 BPM P-R Int : 188 ms QRS Dur : 092 ms QT Int : 446 ms P-R-T Axes : 016 -24 -09 degrees QTc Int : 367 ms Marked sinus bradycardia Moderate voltage criteria for LVH, may be normal variant Inferior T wave abnormality Abnormal ECG When compared with ECG of 08-MAR-2020 23:26, Vent. rate has decreased BY 53 BPM T wave inversion now evident in Inferior leads QT has shortened Confirmed by Joselo Peoples ([id number]) on 03/27/2020 3:51:34 PM Referred By: REFERRED SELF Confirmed By:Joselo Peoples
--- NOTE | 2020-03-27 15:56 | Electrocardiogram Report ---
Test Reason : Blood Pressure : / mmHG Vent. Rate : 043 BPM Atrial Rate : 043 BPM P-R Int : 182 ms QRS Dur : 088 ms QT Int : 448 ms P-R-T Axes : 033 -28 -16 degrees QTc Int : 378 ms Marked sinus bradycardia Minimal voltage criteria for LVH, may be normal variant Inferior T wave abnormality Abnormal ECG When compared with ECG of 27-MAR-2020 03:36, (unconfirmed) No significant change was found Confirmed by Joselo Peoples ([id number]) on 03/27/2020 3:56:12 PM Referred By: REFERRED SELF Confirmed By:Joselo Peoples
--- NOTE | 2020-03-27 16:28 | Operative Report (OR) ---
DATE OF OPERATION: 03/27/2020 PREOPERATIVE DIAGNOSES: Acute cholecystitis, cholelithiasis. POSTOPERATIVE DIAGNOSES: Acute cholecystitis, cholelithiasis. OPERATION: Laparoscopic cholecystectomy. SURGEON: Jonathon Price MD. RACECOURSE BARRIER ATTENDANT: Lillian Lake PA-C. ANESTHESIA: General. ESTIMATED BLOOD LOSS: About 20 mL. FINDINGS: Acute cholecystitis with significant inflammation on the gallbladder wall, gallbladder wall thickening and edema. COMPLICATIONS: None. INDICATIONS FOR THE PROCEDURE: This is a 59-year-old gentleman who presented to ED with acute abdominal pain. The patient had ultrasound and HIDA scan done with diagnosis of acute cholecystitis with cholelithiasis. I recommended to do the laparoscopic cholecystectomy, possible open, possible cholangiogram. I did talk to the patient about the benefit, risk, alternate procedure. I indicated the risks may include but not limited to such as bleeding, infection, injury to common bile duct, may need ERCP, myocardial infarction. The patient understands. He signed informed consent and I answered all questions. DETAILS OF PROCEDURE: We brought the patient to the OR, put the patient in the supine position. The patient received SCD on bilateral legs to prevent DVT. Also, patient received 2 g of cefoxitin IV for prophylactic antibiotic. The patient received general anesthesia without difficulty. The abdomen was prepped and draped in routine sterile fashion. After timeout, I injected local anesthesia by using 1% lidocaine mixed with 0.5% Marcaine just above the umbilicus. Then, I made a small incision just above the umbilicus, opened fascia and opened peritoneum under direct vision, put a William trocar in, connected to CO2 to create pneumoperitoneum, flow rate at 6 liters per minute, pressure not more than 14 mmHg. Once we got a nice pneumoperitoneum, we put the camera in, looked around the abdomen showing normal finding on the liver. However, the gallbladder showed significant inflammation, gallbladder wall thickening, edema, confirming the diagnosis of acute cholecystitis. Then, we put another two 5 mm trocars on the right upper quadrant, one 11 trocar on the epigastric area. Once all trocars in, based on the gallbladder's significant distention, we used a large needle to decompress the gallbladder first. Then, we used a grasper to hold the gallbladder, put in the direction to the diaphragm, another grasper to hold the pouch of gallbladder, put the lateral to expose the triangle of Calot. The cystic duct was identified and mobilized. Then, I used two 10 mm metal clips on the proximal cystic duct, one on the distal cystic duct. I then used the scissor for transection of the cystic artery. Rechecked, no active bleeding, no bile leak. The cystic artery was identified and mobilized. I put two 5 mm metal clips on the proximal cystic artery, one on the distal cystic artery, then used scissors for transection of the cystic artery. Rechecked, no active bleeding. Then, we used Bovie to take down gallbladder from the liver bed. Rechecked, no active bleeding, no bile leak from the liver bed. Then, we removed gallbladder through the catch bag. Then, we reinserted the William trocar in, connected to CO2 to create pneumoperitoneum, again looked around the abdomen, no active bleeding, no bile leak from the liver bed. Then, we removed all trocars under direct vision. No active bleeding from the trocar sites. Pneumoperitoneum was released. Now closed the umbilical incision, fascial layer by using #1 Vicryl [id number] x2, closed subcutaneous layer by using 2-0 Vicryl interruptedly, closed skin by using 4-0 Vicryl continuous running. Closed the epigastric incision area, the fascial layer by using #1 Vicryl [id number] x2, subcutaneous layer by using 2-0 Vicryl and closed the skin by using 4-0 Vicryl continuous running, closed another two 5 mm trocar sites skin only by using 4-0 Vicryl. Then, we put the dressing on. The patient tolerated the procedure well. All instrument, needle and sponge count were correct x2 at the end of the case. The patient was transferred to recovery room in stable condition. The specimen was sent to pathology. I attest to the content of the Intraoperative Record and any orders documented therein. Any exception s are noted below.
--- NOTE | 2020-03-27 17:02 | Anesthesiology Progress Note ---
Date of Service March 27, 2020 Anesthesia Post Procedure Vital Signs Vital Signs: Temp Pulse Pulse Resp BP BP Pulse Ox 03/27/20 16:44 97.3 F L 64 14 138/84 97 03/27/20 13:46 98.1 F 49 L 18 163/75 H 99 03/27/20 12:16 44 L 16 150/81 H 98 03/27/20 09:38 53 L 18 161/87 H 98 03/27/20 07:26 46 L 16 152/87 H 99 03/27/20 06:30 53 L 15 155/90 H 98 03/27/20 06:00 55 L 16 155/100 H 98 03/27/20 04:00 47 L 18 185/90 H 99 03/27/20 03:46 52 L 15 195/90 H 99 03/27/20 03:23 97.5 F L 53 L 18 168/89 H 100 Pain Intensity Chest: Pain Intensity: 1 Transfer of Care Handoff Completed per policy Notes Mental Status: alert / awake / arousable and participated in evaluation Patient Amnestic to Procedure: Yes Nausea / Vomiting: adequately controlled Pain: adequately controlled Airway Patency, RR, SpO2: stable & adequate BP & HR: stable & adequate Hydration State: stable & adequate Anesthetic Complications: no major complications apparent and Pt Satisfied with anesthetic care
[2020-03-27] MEDS ORDERED: OXYCODONE/ACETAMINOPHEN 5mg/325mg TAB PO PRN (17:33)
[2020-03-27] MEDS ORDERED: ALBUTEROL HFA 8 GM INHALER INH PRN (17:33)
[2020-03-27] MEDS: LACTATED RINGER'S 1,000 ML IV SCH (18:06)
[2020-03-28] MEDS: LACTATED RINGER'S 1,000 ML IV SCH ×2 (04:50→15:13)
[2020-03-28 06:05] LABS: Basophils # (auto) 0.01 K/uL (0-0.2); Basophils % (auto) 0.1 %; Eosinophils # (auto) 0.01 K/uL (0-0.5); Eosinophils % (auto) 0.1 %; Hematocrit (blood only) 43.6 % (42-52); Hemoglobin 14.9 g/dL (14.0-18.0); Immature Granulocytes # (auto) 0.01 K/uL (0.00-0.02); Immature Granulocytes % (auto) 0.1 %; Lymphocytes # (auto) 0.94 K/uL (1.2-3.4); Lymphocytes % (auto) 11.2 %; Mean Corpuscular Hgb Conc 34.2 g/dL (32-36); Mean Corpuscular Volume 87.7 fL (80-100); Monocytes # (auto) 0.56 K/uL (0.11-0.59); Monocytes % (auto) 6.7 %; Neutrophils # (auto) 6.83 K/uL (1.4-6.5); Neutrophils % (auto) 81.8 %; Platelet Count 125 K/uL (130-400); RDW Coefficient of Variation 13.3 % (11.5-14.5); RDW Standard Deviation 42.4 fL (36.4-46.3); Red Blood Count 4.97 M/uL (4.7-6.1); White Blood Count 8.36 K/uL (4.8-10.8)
[2020-03-28 06:38] LABS: BUN Creatinine Ratio 14.2 (10-20); Calcium 8.8 mg/dl (8.5-10.1); Creatinine Clr Calc Pharmacy 83.7 ml/min; Est GFR (African American) 101.1; Est GFR (Non-African American) 87.3; Potassium 4.1 mmol/L (3.5-5.1)
[2020-03-28 06:40] LABS: Albumin Globulin Ratio 1.2 (0.9-2); Bilirubin,Total 0.8 mg/dl (0.2-1); Globulin 2.5 gm/dl (2.5-4.0); Total Protein 5.5 gm/dl (6.4-8.2)
--- NOTE | 2020-03-28 11:58 | Surgery Progress Note ---
Date of Service March 28, 2020 Assessment & Plan (1) Cholelithiasis: POD # 1 s/p laparoscopic cholecystectomy for acute cholecystitis -avss - minimal postop pain, controlled - no n/v, tolerated reg diet Plan: Discharge home today discharge instructions reviewed work note with restrictions f/u surgical office in [address] Price was present during my examination and agrees with above. Subjective feeling good minimal pain tolerated regular diet pain with movement, has not required any medications for pain no n/v Physical Exam Constitutional: WD/WN, vitals as above no acute distress Gastrointestinal (Abdomen): Inspection/Auscultation: abdomen normal to inspection; abdomen not distended Percussion/Palpation: abdomen soft; abdomen nontender, no guarding and abdomen not rigid Skin: no rashes, warm and dry + incision (covered with dry dressing) Psychiatric: A+Ox3, euthymic affect Results & Data Vital Signs (Past 12 Hours) Vital Signs Temp Pulse Resp BP Pulse Ox 03/28/20 07:13 36.7 C 67 18 119/71 97 03/28/20 03:15 36.6 C 63 16 115/66 96 Laboratory Results 03/28/20 03/28/20 03/28/20 Range/Units 05:20 05:20 05:20 WBC 8.36 (4.8-10.8) K/uL RBC 4.97 (4.7-6.1) M/uL Hgb 14.9 (14.0-18.0) g/dL Hct 43.6 (42-52) % MCV 87.7 (80-100) fL MCH 30.0 (25-34) pg MCHC 34.2 (32-36) g/dL RDW Std Deviation 42.4 (36.4-46.3) fL RDW Coeff of Gregory 13.3 (11.5-14.5) % Plt Count 125 L (130-400) K/uL MPV 11.0 H (7.4-10.4) fL Immature Gran % (Auto) 0.1 % Neut % (Auto) 81.8 % Lymph % (Auto) 11.2 % Arthur % (Auto) 6.7 % Eos % (Auto) 0.1 % Baso % (Auto) 0.1 % Neut # (Auto) 6.83 H (1.4-6.5) K/uL Lymph # (Auto) 0.94 L (1.2-3.4) K/uL Arthur # (Auto) 0.56 (0.11-0.59) K/uL Eos # (Auto) 0.01 (0-0.5) K/uL Baso # (Auto) 0.01 (0-0.2) K/uL Immature Gran # (Auto) 0.01 (0.00-0.02) K/uL Sodium 143 (136-145) mmol/L Potassium 4.1 (3.5-5.1) mmol/L Chloride 110 H (98-107) mmol/L Carbon Dioxide 27 (21-32) mmol/L Anion Gap 6.0 (3-11) BUN 14 (7-18) mg/dl Creatinine 0.95 (0.6-1.4) mg/dl Est Cr Clr Drug Dosing 83.7 ml/min Est GFR ( Amer) 101.1 Est GFR (Non-Af Amer) 87.3 BUN/Creatinine Ratio 14.2 (10-20) Glucose 125 H (70-99) mg/dl Calcium 8.8 (8.5-10.1) mg/dl Total Bilirubin 0.8 (0.2-1) mg/dl AST 13 L (15-37) U/L ALT 31 (12-78) U/L Alkaline Phosphatase 55 (45-117) U/L Total Protein 5.5 L (6.4-8.2) gm/dl Albumin 3.0 L (3.4-5.0) gm/dl Globulin 2.5 (2.5-4.0) gm/dl Albumin/Globulin Ratio 1.2 (0.9-2) Hepatitis C Ab Screen Neg (Neg) (1) Cholelithiasis Biliary obstruction: without biliary obstruction Cholecystitis presence: without cholecystitis Cholelithiasis location: gallbladder and bile duct Qualified Code(s): K80.70 - Calculus of gallbladder and bile duct without cholecystitis without obstruction
--- NOTE | 2020-03-30 12:25 | Discharge Summary ---
Date of Service March 30, 2020 Admission HPI Per Admitting Provider Rickie is a 59 year-old male who presented to ED this morning with complaint of abdominal pain that suddenly woke him up around 1 am. States he was in normal state of health prior to going to bed. Pain located upper abdomen with radiation around to his back. about 2-3/10 in severity. Denies of any fever, chills, nausea, vomiting, chest pain, shortness of breath, changes in bowel habits, diarrhea, constipation, blood in stools, melena, hematochezia, acholic stools, dysuria or hematuria. No gallbladder issues in past. No family history of gallbladder issues. No prior abdominal surgeries. No recent change in diet. Had Tylenol and Toradol and states pain is better currently /10. ER work-up included labs which showed no leukocytosis, lfts, t. bili wnl. Afebrile. Gallbladder US showing gallstones with distended gallbladder, possible 6 mm stone in neck of gallbladder CBD 3 mm. No pericholecystic fluid. Principal Diagnosis Acute calculus cholecystitis Discharge Data Allergies Allergy/AdvReac Type Severity Reaction Status Date / Time No Known Allergies Allergy Verified 03/27/20 03:57 Consultations 03/27/20 12:53 ED Decision to Admit Stat Procedures Performed Operation Date: 03/27/20 11:20 Actual Procedures p Laparoscopic Cholecystectomy(Not Applicable) - Jonathon Price MD Ordered Studies 03/27/20 04:14 US gallbladder Urgent Hospital Course (1) Cholelithiasis: Patient was evaluated in the emergency department for surgical consultation given ultrasound showing gallstone in the neck of the gallbladder however no significant findings of acute cholecystitis and labs are unremarkable. Patient was sent for a HIDA scan to rule out cystic duct obstruction given stone in the neck of the gallbladder. HIDA scan showed evidence of cystic duct obstruction and patient was taken to the operating room by Dr. Mcneill for laparoscopic cholecystectomy. Patient was found to have acute cholecystitis and tolerated procedure well. Patient was transferred to recovery room and then to medical/surgical floor for postoperative care. His diet was advanced as tolerated. Postop day #1 patient vital signs were stable, pain minimal and controlled, tolerated regular diet. Patient was discharged home on postop day #1 in stable condition Total Time Total Time Spent Total Time Spent (In Minutes): 20 Total Time Includes: Examination of the Patient, Discharge Planning and Medication Reconciliation Discharge Plan Discharge Items Patient Disposition: Home - Self-Care Reason For Visit: ACUTE CHOLECYSTITIS Discharge Diagnosis: same Condition on Discharge: Good Activity: Per Instructions section Non-emergency contact: Surgeon Call non-emergency contact if: you have any medication questions, your pain is not controlled, your pain is worsening, you have a fever, your temperature is above 101, your wound has increased redness, your wound has increased drainage and your wound pain has increased Follow-up/Referrals: Nate Philip MD [Primary Care Provider] - 03/30/20 1:30 pm (Your appointment is with yash Ralph at Dr. Philip's office on [address] . If you need to change this appointment, please call [phone].) Jonathon Price MD [Physician] - 04/02/20 2:45 pm (Your appointment is with Dr Price at the [place] [place] office. If you need to change this appointment, please call [phone].) Diet: Regular Addtl Attending Provider Instructions: Post-Surgical ~Dis charge Instructions Activity Recommendations: - lifting limitation: ( no more than 25 pounds for 4 weeks), - exercise/sex/sports limit: (nonstrenuous for at least 2 weeks), - driving or machine use limit: (none for 1 week or until pain free), - Shower/bathe limit: (may shower in 4 days, sponge bath and wash hair in meantime) Diet: - Resume previous diet SPECIAL CARE INSTRUCTIONS: - May shower in 4 days. Sponge bath and wash hair in meantime. After 4 days , remove outer dressings and shower. Let water run over area and pat dry. - Leave steri strips on for one week and then remove - Call the surgeon's office with any questions or concerns - - (ex. temperature higher than 101 degrees F, excessive bleeding or pain). MEDICATIONS: - Resume previous medications unless instructed otherwise by your surgeon. -You can alternate extra strength Tylenol and Ibuprofen as needed for pain. - Ibuprofen 600 mg every 6 hours as needed (take with food) - Tylenol 500 mg every 6 hours as needed FOLLOW UP VISIT: - Please call the office to schedule a two week follow-up appointment. Office number [facility] Provider Instructions: Please follow-up as discussed with general surgery. Please also follow-up with your family doctor regarding your slow heartbeat and mildly low platelet levels. Please drink plenty of water and eat a light, low-fat diet in the interim. If you develop worsening pain, nausea or vomiting, dizziness, fevers or chills, chest pain, trouble breathing, black or bloody stools, worsening heartburn, or you have any other new concerns, please return to the ER immediately. Pending Studies at Discharge: Yes (Gallbladder pathology, will be reviewed at follow-up visit) Stand-Alone Forms: [employer], Opioid Pain Management, Work/School Release (Inpt), Smoking Cessation Medications and DC Order Prescriptions: Continued albuterol sulfate 90 mcg/actuation HFA aerosol inhaler 1 puffs INH Q6H PRN (Reason: shortness of breath or wheezing) Qty: 6.7 RF: 0 Discharge Orders: Discharge Order (Routine); Ordered 03/28/20 Ordered By: Lillian Rico/Other Patient Handouts: DVT Post Op Prevention, ED Abdominal Pain Gallstone Poss, ED Gallstones with Biliary Colic Admission Data Admit Date/Time: 03/27/20 15:57 Attending Provider: Jonathon Price Admit Provider: Jonathon Price Primary Care Provider: Nate Philip Other Providers: Jonathon Price Other Interventions: Discharge Summary Assessment (RN) Last Done: 03/28/20 13:39 DC Date/Time DO NOT enter until pt leaves facility: 03/28/20 16:45
--- NOTE | 2020-03-30 13:56 | Discharge Summary (DS) ---
ADMITTING DIAGNOSES: Acute cholecystitis, cholelithiasis. DISCHARGE DIAGNOSES: Acute cholecystitis, cholelithiasis. OPERATION: Laparoscopic cholecystectomy. SURGEON: Jonathon Price MD. DETAILS OF DISCHARGE SUMMARY: This is a 59-year-old gentleman who presented to ED with acute abdominal pain. The patient had ultrasound diagnosis of acute cholecystitis with cholelithiasis. The patient was admitted to hospital and later on we took the patient to the OR. We did a laparoscopic cholecystectomy. The patient tolerated the procedure well and the patient transferred to a regular floor doing fine. He tolerated a diet and good control of incision pain, no nausea, no vomiting. PHYSICAL EXAMINATION: VITAL SIGNS: Temperature is 36.6, respiratory rate 16, heart rate is 60, blood pressure is 120/69, O2 saturation 96% on room air. GENERAL: The patient is alert, awake, oriented x3. HEENT: With normal limitation. NEUROLOGIC: Intact. NECK: No JVD. CHEST: Bilateral lung sounds clear. HEART: Normal S1, S2. No murmur. ABDOMEN: Soft, no tenderness. All dressing intact. No redness, no drainage around the incision site. Abdomen is not distended. Bowel sounds positive. EXTREMITIES: No edema. PLAN: The patient wanted to go home. We gave the patient postop care instructions and patient understands. I will follow up the patient in 2 weeks.
== END 2020-03-28 16:45 | disposition home or self-care (01) | DRG 419 ==
LOC: ED 03:17 → ASU 13:29 → 3W 15:57 → INTOOBSV 15:57